=== PATIENT | female | born 1935 | race Caucasian/White ===

== ENCOUNTER 2017-12-07 15:41 | Emergency (ER) | payer MEDICARE, OTHER ==
[~2017-12-07] VITALS: Ht 162.6 cm; Wt 114.0 kg
[~2017-12-07 15:41] MED LIST: ALBU8HFA PO; CYCL-1 PO; DICL100G15 TOP; LIDO700A32 TP
[2017-12-07 15:47] VITALS: BP 154/62
[2017-12-07 16:50] LABS: BASOPHILS # (AUTO) 0.1 X10'3 (0-0.2); EOSINOPHILS # (AUTO) 0.6 X10'3 (0-0.9); EOSINOPHILS % (AUTO) 6.6 % (0-6); HEMATOCRIT 41.3 % (35.0-45.0); HEMOGLOBIN 13.5 g/dl (12.0-16.0); LYMPHOCYTES % (AUTO) 23.9 % (21-51); MEAN CORPUSCULAR HEMOGLOBIN 29.7 PG (27.0-31.0); MEAN CORPUSCULAR HGB CONC 32.7 % (33.0-36.5); MEAN CORPUSCULAR VOLUME 90.8 FL (78-98); MEAN PLATELET VOLUME 9.7 FL (7.4-10.4); MONOCYTES # (AUTO) 0.7 X10'3 (0-0.9); MONOCYTES % (AUTO) 8.8 % (2-12); NEUTROPHILS % (AUTO) 59.7 % (42-75); PLATELET COUNT 201 X10'3 (140-440); RED BLOOD COUNT 4.55 X10'6 (4.20-5.60); RED CELL DISTRIBUTION WIDTH 13.7 % (11.5-14.5); WHITE BLOOD COUNT 8.4 X10'3 (4.5-11.0)
[2017-12-07 17:08] LABS: PARTIAL THROMBOPLASTIN TIME 24 SECONDS (22-32); PROTHROMBIN TIME 10.1 SECONDS (9.0-12.0)
[2017-12-07 17:13] LABS: ALANINE AMINOTRANSFERASE 30 U/L (12-78); ALBUMIN/GLOBULIN RATIO 0.8 (1.1-1.5); ALKALINE PHOSPHATASE 68 IU/L (46-116); ANION GAP 6 (8-16); ASPARTATE AMINO TRANSFERASE 18 U/L (10-37); BILIRUBIN,TOTAL 0.4 MG/DL (0.1-1.0); BLOOD UREA NITROGEN 11 MG/DL (7-18); BUN/CREATININE RATIO 14.5 (6.6-38.0); CALCIUM 8.8 MG/DL (8.5-10.1); CHLORIDE 105 MMOL/L (99-107); CREATININE 0.76 MG/DL (0.40-0.90); GLUCOSE 104 MG/DL (70-104); POTASSIUM 4.1 MMOL/L (3.5-5.1); SODIUM 141 MMOL/L (135-145); TOTAL CARBON DIOXIDE 30.5 MMOL/L (24-32); TOTAL PROTEIN 6.6 G/DL (6.4-8.2); eGFR 73 ML/MIN
[2017-12-07 18:34] LABS: CLARITY,URINE SLIGHTLY CLOUDY (Clear); COLOR,URINE YELLOW (Yellow); GLUCOSE, URINE NEGATIVE (Neg); KETONES,URINE NEGATIVE (Neg); LEUKOCYTE ESTERASE ,URINE MODERATE (Neg); NITRITES, URINE NEGATIVE (Neg); OCCULT BLOOD,URINE NEGATIVE (Neg); PH,URINE 7.5 (4.8-8.0); PROTEIN,URINE NEGATIVE (Neg); UROBILINOGEN,URINE 0.2 E.U/dL (0.2-1.0)
[2017-12-07 18:35] LABS: UA COLLECTION TYPE VOIDED
[2017-12-07 18:40] LABS: URINE AMPHETAMINE SCREEN NEGATIVE (Neg); URINE BARBITUATE SCREEN NEGATIVE (Neg); URINE BENZODIAZEPINES SCREEN NEGATIVE (Neg); URINE CANNABINOID SCREEN NEGATIVE (Neg); URINE COCAINE SCREEN NEGATIVE (Neg); URINE METHADONE SCREEN NEGATIVE (Neg); URINE OPIATE SCREEN NEGATIVE (Neg); URINE PHENCYCLIDINE SCREEN NEGATIVE (Neg)
[2017-12-07 18:41] LABS: BACTERIA,URINE 4+ /HPF (Neg); RBC,URINE 0-2 /HPF (0-2); SQUAMOUS EPITHELIAL CELL,UR MANY /LPF (FEW)
[2017-12-07 18:42] LABS: RENAL CELLS, URINE FEW /HPF; TRANSITIONAL EPI CELLS,URINE FEW /HPF; WBC CLUMPS,URINE FEW /HPF (NEGATIVE)
[2017-12-07] MEDS ORDERED: NITR100C6 PO (18:48)
== END 2017-12-07 19:05 | disposition home or self-care (01) ==
LOC: ER 15:41
DX: N39.0 Urinary tract infection, site not specified (principal); R53.1 Weakness; K21.9 Gastro-esophageal reflux disease without esophagitis; G89.29 Other chronic pain; Z88.0 Allergy status to penicillin; Z88.2 Allergy status to sulfonamides; Z88.6 Allergy status to analgesic agent; Z88.1 Allergy status to other antibiotic agents; Z88.8 Allergy status to other drugs, medicaments and biological substances; Z79.899 Other long term (current) drug therapy
CPT/HCPCS: 36415; 70450; 71045; 80053; 80305; 81001; 84484; 85025; 85610; 85730; 93005; 99285

== ENCOUNTER 2018-01-04 19:47 | Emergency (ER) | payer MEDICARE, OTHER ==
[~2018-01-04] VITALS: Ht 162.6 cm; Wt 113.4 kg
[~2018-01-04 19:47] MED LIST changes: +NITR100C6 PO
[2018-01-04 19:50] VITALS: BP 179/74
== END 2018-01-04 23:31 | disposition home or self-care (01) ==
LOC: ER 19:48
DX: S01.81XA Laceration without foreign body of other part of head, initial encounter (principal); S09.90XA Unspecified injury of head, initial encounter; K21.9 Gastro-esophageal reflux disease without esophagitis; G89.29 Other chronic pain; F41.9 Anxiety disorder, unspecified; Z87.11 Personal history of peptic ulcer disease; Z90.49 Acquired absence of other specified parts of digestive tract; Z88.0 Allergy status to penicillin; Z88.1 Allergy status to other antibiotic agents; Z88.6 Allergy status to analgesic agent; Z88.5 Allergy status to narcotic agent; Z88.2 Allergy status to sulfonamides; W01.0XXA Fall on same level from slipping, tripping and stumbling without subsequent striking against object, initial encounter; Y93.01 Activity, walking, marching and hiking; Y92.512 Supermarket, store or market as the place of occurrence of the external cause; Y99.8 Other external cause status
CPT/HCPCS: 12011; 70450; 99284

== ENCOUNTER 2018-01-19 15:13 | Emergency (ER) | payer MEDICARE, OTHER ==
[~2018-01-19] VITALS: Ht 162.6 cm; Wt 92.3 kg
[2018-01-19 16:05] LABS: BASOPHILS # (AUTO) 0.1 X10'3 (0-0.2); BASOPHILS % (AUTO) 0.7 % (0-1); EOSINOPHILS # (AUTO) 0.8 X10'3 (0-0.9); EOSINOPHILS % (AUTO) 10.5 % (0-6); HEMATOCRIT 39.7 % (35.0-45.0); HEMOGLOBIN 13.1 g/dl (12.0-16.0); LYMPHOCYTES # (AUTO) 2.3 X10'3 (1.1-4.8); LYMPHOCYTES % (AUTO) 29.5 % (21-51); MEAN CORPUSCULAR HEMOGLOBIN 29.8 PG (27.0-31.0); MEAN CORPUSCULAR HGB CONC 32.9 % (33.0-36.5); MEAN CORPUSCULAR VOLUME 90.4 FL (78-98); MEAN PLATELET VOLUME 8.9 FL (7.4-10.4); MONOCYTES # (AUTO) 0.6 X10'3 (0-0.9); MONOCYTES % (AUTO) 7.5 % (2-12); NEUTROPHILS % (AUTO) 51.8 % (42-75); PLATELET COUNT 224 X10'3 (140-440); RED BLOOD COUNT 4.39 X10'6 (4.20-5.60); RED CELL DISTRIBUTION WIDTH 14.7 % (11.5-14.5); WHITE BLOOD COUNT 7.8 X10'3 (4.5-11.0)
[2018-01-19 16:18] LABS: ALANINE AMINOTRANSFERASE 34 U/L (12-78); ALBUMIN 3.1 G/DL (3.4-5.0); ALBUMIN/GLOBULIN RATIO 0.8 (1.1-1.5); ALKALINE PHOSPHATASE 68 IU/L (46-116); ANION GAP 7 (8-16); ASPARTATE AMINO TRANSFERASE 21 U/L (10-37); BILIRUBIN,TOTAL 0.3 MG/DL (0.1-1.0); BLOOD UREA NITROGEN 8 MG/DL (7-18); BUN/CREATININE RATIO 10.7 (6.6-38.0); CALCIUM 8.6 MG/DL (8.5-10.1); CHLORIDE 104 MMOL/L (99-107); CREATININE 0.75 MG/DL (0.40-0.90); GLUCOSE 101 MG/DL (70-104); POTASSIUM 4.1 MMOL/L (3.5-5.1); SODIUM 142 MMOL/L (135-145); TOTAL CARBON DIOXIDE 30.7 MMOL/L (24-32); TOTAL PROTEIN 6.8 G/DL (6.4-8.2); eGFR 74 ML/MIN
[2018-01-19 16:51] LABS: CLARITY,URINE CLEAR (Clear); COLOR,URINE YELLOW (Yellow); GLUCOSE, URINE NEGATIVE (Neg); KETONES,URINE NEGATIVE (Neg); LEUKOCYTE ESTERASE ,URINE TRACE (Neg); NITRITES, URINE NEGATIVE (Neg); OCCULT BLOOD,URINE NEGATIVE (Neg); PROTEIN,URINE NEGATIVE (Neg); UROBILINOGEN,URINE 0.2 E.U/dL (0.2-1.0)
[2018-01-19 16:56] VITALS: BP 157/82
[2018-01-19 16:58] LABS: UA COLLECTION TYPE VOIDED
[2018-01-19 16:59] LABS: BACTERIA,URINE NONE SEEN /HPF (Neg); MUCUS STRANDS NONE SEEN /LPF (Neg); RBC,URINE 0-2 /HPF (0-2); SQUAMOUS EPITHELIAL CELL,UR FEW /LPF (FEW); WBC,URINE 0-4 /HPF (0-4)
[2018-01-19] MEDS ORDERED: NITR-79 PO (17:19)
== END 2018-01-19 19:27 | disposition home or self-care (01) ==
LOC: ER 15:13
DX: N39.0 Urinary tract infection, site not specified (principal); K21.9 Gastro-esophageal reflux disease without esophagitis; G89.29 Other chronic pain; I51.7 Cardiomegaly; Z90.49 Acquired absence of other specified parts of digestive tract; Z98.890 Other specified postprocedural states; Z88.0 Allergy status to penicillin; Z88.2 Allergy status to sulfonamides; Z88.1 Allergy status to other antibiotic agents; Z88.8 Allergy status to other drugs, medicaments and biological substances; Z79.899 Other long term (current) drug therapy
CPT/HCPCS: 36415; 71045; 80053; 81001; 84484; 85025; 87088; 93005; 99285

== ENCOUNTER 2018-01-24 22:21 | Emergency (ER) | payer MEDICARE, OTHER ==
[~2018-01-24] VITALS: Ht 162.6 cm; Wt 92.3 kg
[~2018-01-24 22:21] MED LIST changes: +NITR-79 PO
[2018-01-24] MEDS ORDERED: acetaminophen 325mg tablet PO ONE (22:40)
[2018-01-25] MEDS ORDERED: acetaminophen 325mg tablet PO ONE (05:55)
[2018-01-25] MEDS ORDERED: traMADol 50MG tablet PO ONE ×2 (07:25→14:00)
[2018-01-25] MEDS ORDERED: morphine 2 MG/ML inj. syringe IM ONE (13:10)
[2018-01-25] MEDS ORDERED: clonazePAM 0.5mg tablet PO SCH (14:00)
[2018-01-25 16:36] VITALS: BP 177/106
== END 2018-01-25 17:40 | disposition home or self-care (01) ==
LOC: ER 22:21
DX: M25.561 Pain in right knee (principal); M25.562 Pain in left knee; R29.6 Repeated falls; K21.9 Gastro-esophageal reflux disease without esophagitis; G89.29 Other chronic pain; Z90.49 Acquired absence of other specified parts of digestive tract; Z98.890 Other specified postprocedural states; Z88.8 Allergy status to other drugs, medicaments and biological substances; Z88.0 Allergy status to penicillin; Z88.2 Allergy status to sulfonamides; Z88.5 Allergy status to narcotic agent; Z88.1 Allergy status to other antibiotic agents; W19.XXXA Unspecified fall, initial encounter; Y93.89 Activity, other specified; Y92.89 Other specified places as the place of occurrence of the external cause; Y99.9 Unspecified external cause status
CPT/HCPCS: 73560; 97161; 97530; 99284

== ENCOUNTER 2019-08-16 19:03 | Inpatient (IN) | payer MEDICARE, OTHER ==
[~2019-08-16] VITALS: Ht 162.6 cm; Wt 226.6 kg
[~2019-08-16 19:03] MED LIST changes: -ALBU8HFA PO; +CLON-527 PO; -CYCL-1 PO; -DICL100G15 TOP; +ESOM40CA49 PO; -LIDO700A32 TP; +METO25TA6 PO; -NITR-79 PO; -NITR100C6 PO
[2019-08-16 21:41] LABS: BASOPHILS # (AUTO) 0.1 X10'3 (0-0.2); BASOPHILS % (AUTO) 0.7 % (0-1); EOSINOPHILS # (AUTO) 0.5 X10'3 (0-0.9); EOSINOPHILS % (AUTO) 5.8 % (0-6); HEMATOCRIT 37.1 % (35.0-45.0); HEMOGLOBIN 11.8 g/dl (12.0-16.0); LYMPHOCYTES # (AUTO) 1.6 X10'3 (1.1-4.8); LYMPHOCYTES % (AUTO) 17.5 % (21-51); MEAN CORPUSCULAR HGB CONC 31.8 g/dL (33.0-36.5); MEAN CORPUSCULAR VOLUME 87.9 FL (78-98); MONOCYTES % (AUTO) 10.7 % (2-12); NEUTROPHILS % (AUTO) 65.3 % (42-75); PLATELET COUNT 232 X10'3 (140-440); RED BLOOD COUNT 4.23 X10'6 (4.20-5.60); RED CELL DISTRIBUTION WIDTH 16.1 % (11.5-14.5); WHITE BLOOD COUNT 9.2 X10'3 (4.5-11.0)
--- NOTE | 2019-08-16 21:47 | NUR ---
Dr. Miguel made aware Pt noted to be in Afib rate high 130's to low 140's. MD to assess Pt.
[2019-08-16 21:57] LABS: ALANINE AMINOTRANSFERASE 23 U/L (12-78); ALBUMIN 2.8 G/DL (3.4-5.0); ALBUMIN/GLOBULIN RATIO 0.7 (1.1-1.5); ALKALINE PHOSPHATASE 94 IU/L (46-116); ANION GAP 4 (8-16); ASPARTATE AMINO TRANSFERASE 22 U/L (10-37); BILIRUBIN,TOTAL 0.4 MG/DL (0.1-1.0); BLOOD UREA NITROGEN 12 MG/DL (7-18); BUN/CREATININE RATIO 15.2 (6.6-38.0); CALCIUM 9.2 MG/DL (8.5-10.1); CHLORIDE 107 MMOL/L (99-107); CREATININE 0.79 MG/DL (0.40-0.90); GLUCOSE 99 MG/DL (70-104); POTASSIUM 3.9 MMOL/L (3.5-5.1); SODIUM 142 MMOL/L (135-145); TOTAL CARBON DIOXIDE 31.5 MMOL/L (24-32); TOTAL PROTEIN 6.9 G/DL (6.4-8.2); eGFR 70 ML/MIN
[2019-08-16] MEDS ORDERED: metoprolol tartrate 50mg tablet PO ONE (22:55)
[2019-08-16] MEDS ORDERED: CLON-527 PO (23:24)
[2019-08-16] MEDS ORDERED: METO-467 PO (23:42)
[2019-08-16] MEDS ORDERED: PANT-47 PO (23:42)
[2019-08-16] MEDS ORDERED: ATOR20TA PO (23:42)
[2019-08-16] MEDS ORDERED: ASPI-1265 PO (23:42)
[2019-08-16] MEDS ORDERED: DOCU100C40 PO (23:42)
[2019-08-16] MEDS ORDERED: DILT-88 PO (23:42)
[2019-08-16] MEDS ORDERED: APIX5TAB3 PO (23:42)
--- NOTE | 2019-08-17 00:16 | NUR ---
REC'D CALL FROM MD CARSON. HE STATES THE MEDICAL RECORDS WE REC'D FROM [facility] DID NOT CONTAIN THE H&P AND THAT THERE WAS NO MENTION IN THE RECORDS OF ANY SURGICAL PROCEDURES AND THAT PT HAS A SOMEWHAT RECENT SCAR ON HER ABD. I CONTACTED [place] [facility] @ [phone] WHO STATED THAT HE SENT THE H&P THAT WAS WRITTEN BY AN MD SOL AND HE WILL LOOK TO SEE IF HE CAN FIND ANY SURGICAL REPORTS AND FAX THEM TO US.
[2019-08-17] MEDS ORDERED: mag hydrox/Alum hydrox/simeth 30ml oral suspension PO PRN (00:20)
[2019-08-17] MEDS ORDERED: acetaminophen 325mg tablet PO PRN (00:20)
[2019-08-17] MEDS ORDERED: ondansetron/PF 4mg/2ml inj IV PRN (00:20)
[2019-08-17 00:31] LABS: CLARITY,URINE CLEAR (Clear); COLOR,URINE YELLOW (Yellow); GLUCOSE, URINE NEGATIVE (Neg); KETONES,URINE NEGATIVE (Neg); LEUKOCYTE ESTERASE ,URINE NEGATIVE (Neg); NITRITES, URINE NEGATIVE (Neg); OCCULT BLOOD,URINE NEGATIVE (Neg); PROTEIN,URINE NEGATIVE (Neg); UROBILINOGEN,URINE 0.2 E.U/dL (0.2-1.0)
[2019-08-17 00:32] LABS: UA COLLECTION TYPE STRAIGHT CATH
[2019-08-17] MEDS ORDERED: metoprolol tartrate 50mg tablet PO ONE (00:40)
--- NOTE | 2019-08-17 00:42 | NUR ---
Dr. Angulo in the ED at this time and made aware of pt RVR of 130-140s. Order received to give metoprolol 25mg 1 tab po once.
[2019-08-17] MEDS ORDERED: metoprolol tartrate 25mg tablet PO ONE (00:45)
--- NOTE | 2019-08-17 01:17 | NUR ---
Report given to me by Kenny and I will relay the report to Vielka GRIFFIN.
--- NOTE | 2019-08-17 01:35 | NUR ---
RECEIVED PATIENT FROM ER. PATIENT IN BED RESTING AND IN NO APPARENT DISTRESS.
[2019-08-17 01:36] VITALS: BP 142/94
--- NOTE | 2019-08-17 02:00 | NUR ---
Pictures of buttocks, bilat groin taken and placed in chart. Addendum: 08/17/19 at 0407 by Ramon Peng RN Amended: Links added.
--- NOTE | 2019-08-17 06:05 | NUR ---
Patient in room [facility] 349. I have received report from DEVENDRA GRIFFIN and had the opportunity to ask questions and assume patient care.
--- NOTE | 2019-08-17 06:17 | NUR ---
Problems reprioritized. Patient report given, questions answered & plan of care reviewed with Radha GRIFFIN.
[2019-08-17 08:00] VITALS: BP 143/98
[2019-08-17] MEDS ORDERED: aspirin 81mg tab.chew PO SCH (08:00)
[2019-08-17] MEDS: apixaban 5mg tablet PO SCH ×2 (08:22→21:49)
[2019-08-17] MEDS: diltiazem CD 120mg capsule (once-daily) PO SCH (08:22)
[2019-08-17] MEDS: docusate sod 100mg capsule PO SCH ×2 (08:22→21:49)
[2019-08-17] MEDS: pantoprazole 40mg Tablet.DR PO SCH (08:23)
[2019-08-17] MEDS: metoprolol tartrate 50mg tablet PO SCH ×2 (08:23→21:52)
[2019-08-17] MEDS ORDERED: magnesium Cl slow-release 64mg tablet PO PRN (10:15)
[2019-08-17] MEDS: K and/or MAG REPLACEMENT MC SCH ×2 (10:15→19:18)
[2019-08-17] MEDS ORDERED: potassium Cl 20 mEq SR tablet PO PRN ×2 (10:15)
[2019-08-17] MEDS ORDERED: potassium CL 10mEq/100ml bag 100 ML IV PRN (10:15)
[2019-08-17] MEDS ORDERED: magnesium 4gm in 100ml NS 100 ML IV PRN (10:15)
--- NOTE | 2019-08-17 10:18 | NUR ---
PAGER ID: [phone] MESSAGE: [id number] RE: TREE [id number] STATES SHE TAKES NORCO AT HOME, NOTHING ORDERED, C/O PAIN NOW,
[2019-08-17] MEDS: HYDROcodone/acetaminophen 5mg/325mg tablet PO PRN (10:47)
[2019-08-17 11:00] VITALS: BP 126/74
[2019-08-17] MEDS: HYDROcodone/acetaminophen 10/325mg tab PO PRN ×2 (16:36→22:24)
[2019-08-17 18:15] VITALS: BP 120/77
--- NOTE | 2019-08-17 18:15 | NUR ---
Problems reprioritized. Patient report given, questions answered & plan of care reviewed with LIDYA GRIFFIN.
--- NOTE | 2019-08-17 18:49 | NUR ---
Patient in room [facility] 349. I have received report from ELIAS Garcia and had the opportunity to ask questions and assume patient care.
[2019-08-17] MEDS: atorvastatin 20mg tablet PO SCH (21:46)
[2019-08-17] MEDS: clonazePAM 1mg tablet PO PRN (21:49)
[2019-08-18 00:15] VITALS: BP 112/61
[2019-08-18] MEDS: magnesium hydroxide 30ml (MOM) UD suspension PO PRN ×2 (04:20→20:54)
[2019-08-18 05:16] LABS: ALANINE AMINOTRANSFERASE 21 U/L (12-78); ALBUMIN 2.3 G/DL (3.4-5.0); ALBUMIN/GLOBULIN RATIO 0.6 (1.1-1.5); ALKALINE PHOSPHATASE 80 IU/L (46-116); ANION GAP 5 (8-16); ASPARTATE AMINO TRANSFERASE 21 U/L (10-37); BILIRUBIN,TOTAL 0.2 MG/DL (0.1-1.0); BLOOD UREA NITROGEN 12 MG/DL (7-18); BUN/CREATININE RATIO 15.4 (6.6-38.0); CALCIUM 8.5 MG/DL (8.5-10.1); CHLORIDE 107 MMOL/L (99-107); CREATININE 0.78 MG/DL (0.40-0.90); GLUCOSE 101 MG/DL (70-104); MAGNESIUM 1.8 MG/DL (1.5-2.4); PHOSPHORUS 4.1 MG/DL (2.3-4.5); POTASSIUM 3.8 MMOL/L (3.5-5.1); SODIUM 141 MMOL/L (135-145); TOTAL PROTEIN 5.9 G/DL (6.4-8.2); eGFR 71 ML/MIN
[2019-08-18 05:18] LABS: BASOPHILS # (AUTO) 0.1 X10'3 (0-0.2); BASOPHILS % (AUTO) 0.8 % (0-1); EOSINOPHILS # (AUTO) 0.8 X10'3 (0-0.9); EOSINOPHILS % (AUTO) 10.1 % (0-6); LYMPHOCYTES # (AUTO) 2.1 X10'3 (1.1-4.8); LYMPHOCYTES % (AUTO) 27.4 % (21-51); MEAN CORPUSCULAR HEMOGLOBIN 28.5 PG (27.0-31.0); MEAN CORPUSCULAR HGB CONC 32.3 g/dL (33.0-36.5); MEAN PLATELET VOLUME 9.1 FL (7.4-10.4); MONOCYTES # (AUTO) 0.8 X10'3 (0-0.9); MONOCYTES % (AUTO) 10.3 % (2-12); NEUTROPHILS # (AUTO) 3.9 X10'3 (1.8-7.7); NEUTROPHILS % (AUTO) 51.4 % (42-75); PLATELET COUNT 198 X10'3 (140-440); RED BLOOD COUNT 3.86 X10'6 (4.20-5.60); RED CELL DISTRIBUTION WIDTH 16.1 % (11.5-14.5); WHITE BLOOD COUNT 7.7 X10'3 (4.5-11.0)
--- NOTE | 2019-08-18 06:27 | NUR ---
Patient in room [facility] 349. I have received report from Lu GRIFFIN and had the opportunity to ask questions and assume patient care.
--- NOTE | 2019-08-18 06:27 | NUR ---
Problems reprioritized. Patient report given, questions answered & plan of care reviewed with ELIAS Sharma.
[2019-08-18 07:31] VITALS: BP 111/62
[2019-08-18] MEDS: docusate sod 100mg capsule PO SCH ×2 (07:40→20:53)
[2019-08-18] MEDS: apixaban 5mg tablet PO SCH ×2 (07:40→20:53)
[2019-08-18] MEDS: metoprolol tartrate 50mg tablet PO SCH ×2 (07:40→20:53)
[2019-08-18] MEDS: pantoprazole 40mg Tablet.DR PO SCH (07:41)
[2019-08-18] MEDS: diltiazem CD 120mg capsule (once-daily) PO SCH (07:41)
[2019-08-18] MEDS: K and/or MAG REPLACEMENT MC SCH ×2 (08:00→20:00)
[2019-08-18] MEDS: HYDROcodone/acetaminophen 10/325mg tab PO PRN ×2 (09:08→20:52)
[2019-08-18 11:41] VITALS: BP 116/68
--- NOTE | 2019-08-18 18:05 | NUR ---
Patient in room [facility] 349. I have received report from Zachary GRIFFIN and had the opportunity to ask questions and assume patient care.
--- NOTE | 2019-08-18 18:22 | NUR ---
Problems reprioritized. Patient report given, questions answered & plan of care reviewed with Amelia GRIFFIN.
[2019-08-18 20:00] VITALS: BP 133/70
[2019-08-18] MEDS: NYSTATIN CREAM - 30GM TUBE TP SCH (20:45)
[2019-08-18] MEDS: atorvastatin 20mg tablet PO SCH (20:52)
[2019-08-18] MEDS: clonazePAM 1mg tablet PO PRN (21:17)
[2019-08-19] VITALS: BP 126/86
[2019-08-19 05:38] LABS: BASOPHILS # (AUTO) 0.1 X10'3 (0-0.2); BASOPHILS % (AUTO) 0.8 % (0-1); EOSINOPHILS # (AUTO) 0.6 X10'3 (0-0.9); EOSINOPHILS % (AUTO) 7.4 % (0-6); HEMATOCRIT 35.2 % (35.0-45.0); HEMOGLOBIN 11.2 g/dl (12.0-16.0); LYMPHOCYTES # (AUTO) 1.8 X10'3 (1.1-4.8); LYMPHOCYTES % (AUTO) 20.6 % (21-51); MEAN CORPUSCULAR HGB CONC 31.8 g/dL (33.0-36.5); MEAN CORPUSCULAR VOLUME 87.9 FL (78-98); MEAN PLATELET VOLUME 9.1 FL (7.4-10.4); MONOCYTES # (AUTO) 0.8 X10'3 (0-0.9); MONOCYTES % (AUTO) 8.8 % (2-12); NEUTROPHILS # (AUTO) 5.4 X10'3 (1.8-7.7); NEUTROPHILS % (AUTO) 62.4 % (42-75); PLATELET COUNT 220 X10'3 (140-440); RED BLOOD COUNT 4.01 X10'6 (4.20-5.60); RED CELL DISTRIBUTION WIDTH 16.2 % (11.5-14.5); WHITE BLOOD COUNT 8.7 X10'3 (4.5-11.0)
[2019-08-19 06:00] LABS: ALANINE AMINOTRANSFERASE 23 U/L (12-78); ALBUMIN 2.4 G/DL (3.4-5.0); ALBUMIN/GLOBULIN RATIO 0.6 (1.1-1.5); ALKALINE PHOSPHATASE 87 IU/L (46-116); ANION GAP 4 (8-16); ASPARTATE AMINO TRANSFERASE 37 U/L (10-37); BILIRUBIN,TOTAL 0.4 MG/DL (0.1-1.0); BLOOD UREA NITROGEN 11 MG/DL (7-18); BUN/CREATININE RATIO 16.2 (6.6-38.0); CALCIUM 8.4 MG/DL (8.5-10.1); CHLORIDE 106 MMOL/L (99-107); CREATININE 0.68 MG/DL (0.40-0.90); GLUCOSE 92 MG/DL (70-104); MAGNESIUM 2.1 MG/DL (1.5-2.4); PHOSPHORUS 3.8 MG/DL (2.3-4.5); POTASSIUM 4.3 MMOL/L (3.5-5.1); SODIUM 141 MMOL/L (135-145); TOTAL CARBON DIOXIDE 31.4 MMOL/L (24-32); TOTAL PROTEIN 6.2 G/DL (6.4-8.2); eGFR 83 ML/MIN
--- NOTE | 2019-08-19 06:40 | NUR ---
Problems reprioritized. Patient report given, questions answered & plan of care reviewed with Zachary RN.
--- NOTE | 2019-08-19 07:00 | NUR ---
Patient in room [facility] 349. I have received report from Amelia GRIFFIN and had the opportunity to ask questions and assume patient care.
[2019-08-19 08:00] VITALS: BP 131/88
[2019-08-19] MEDS: K and/or MAG REPLACEMENT MC SCH ×2 (08:00→20:00)
[2019-08-19] MEDS: diltiazem CD 120mg capsule (once-daily) PO SCH (08:11)
[2019-08-19] MEDS: metoprolol tartrate 50mg tablet PO SCH ×2 (08:11→20:05)
[2019-08-19] MEDS: pantoprazole 40mg Tablet.DR PO SCH (08:12)
[2019-08-19] MEDS: docusate sod 100mg capsule PO SCH ×2 (08:12→20:04)
[2019-08-19] MEDS: apixaban 5mg tablet PO SCH ×2 (08:12→20:05)
[2019-08-19] MEDS: NYSTATIN CREAM - 30GM TUBE TP SCH ×2 (08:12→20:05)
[2019-08-19 11:00] VITALS: BP 135/84
--- NOTE | 2019-08-19 12:55 | NUR ---
Zachary Surg [id number] Re: 349B Anika Martinez Patient is complaining that she has a clot in the lower right extremity. I don't see any signs or symptoms other than patient complaint. Wanted to let you know thanks Zachary. This message sent to physician after complaint from patient. Physician stated keep a close eye on the patient and the RLE until he makes his rounds.
--- NOTE | 2019-08-19 18:20 | NUR ---
Patient in room [facility] 349. I have received report from Zachary GRIFFIN and had the opportunity to ask questions and assume patient care.
--- NOTE | 2019-08-19 18:23 | NUR ---
Problems reprioritized. Patient report given, questions answered & plan of care reviewed with Monica GRIFFIN.
[2019-08-19 19:57] VITALS: BP 128/78
[2019-08-19] MEDS: atorvastatin 20mg tablet PO SCH (20:05)
[2019-08-19] MEDS: HYDROcodone/acetaminophen 5mg/325mg tablet PO PRN (22:06)
[2019-08-19] MEDS: clonazePAM 1mg tablet PO PRN (22:09)
[2019-08-20] VITALS: BP 140/76
[2019-08-20 05:09] LABS: BASOPHILS # (AUTO) 0.1 X10'3 (0-0.2); BASOPHILS % (AUTO) 0.9 % (0-1); EOSINOPHILS # (AUTO) 0.5 X10'3 (0-0.9); EOSINOPHILS % (AUTO) 5.5 % (0-6); HEMATOCRIT 35.3 % (35.0-45.0); HEMOGLOBIN 11.2 g/dl (12.0-16.0); LYMPHOCYTES % (AUTO) 21.8 % (21-51); MEAN CORPUSCULAR HGB CONC 31.7 g/dL (33.0-36.5); MEAN CORPUSCULAR VOLUME 88.1 FL (78-98); MEAN PLATELET VOLUME 9.3 FL (7.4-10.4); MONOCYTES # (AUTO) 0.9 X10'3 (0-0.9); MONOCYTES % (AUTO) 9.7 % (2-12); NEUTROPHILS # (AUTO) 5.7 X10'3 (1.8-7.7); NEUTROPHILS % (AUTO) 62.1 % (42-75); PLATELET COUNT 184 X10'3 (140-440); RED CELL DISTRIBUTION WIDTH 16.2 % (11.5-14.5); WHITE BLOOD COUNT 9.2 X10'3 (4.5-11.0)
[2019-08-20 05:17] LABS: ALANINE AMINOTRANSFERASE 19 U/L (12-78); ALBUMIN 2.4 G/DL (3.4-5.0); ALBUMIN/GLOBULIN RATIO 0.6 (1.1-1.5); ALKALINE PHOSPHATASE 89 IU/L (46-116); ANION GAP 3 (8-16); ASPARTATE AMINO TRANSFERASE 17 U/L (10-37); BILIRUBIN,TOTAL 0.3 MG/DL (0.1-1.0); BLOOD UREA NITROGEN 11 MG/DL (7-18); BUN/CREATININE RATIO 13.1 (6.6-38.0); CALCIUM 8.6 MG/DL (8.5-10.1); CHLORIDE 109 MMOL/L (99-107); CREATININE 0.84 MG/DL (0.40-0.90); GLUCOSE 100 MG/DL (70-104); PHOSPHORUS 3.9 MG/DL (2.3-4.5); POTASSIUM 4.1 MMOL/L (3.5-5.1); SODIUM 142 MMOL/L (135-145); TOTAL CARBON DIOXIDE 29.6 MMOL/L (24-32); TOTAL PROTEIN 6.2 G/DL (6.4-8.2); eGFR 65 ML/MIN
--- NOTE | 2019-08-20 06:38 | NUR ---
Problems reprioritized. Patient report given, questions answered & plan of care reviewed with Mechelle GRIFFIN.
--- NOTE | 2019-08-20 06:59 | NUR ---
Patient in room [facility] 349. I have received report from ELIAS Anderson and had the opportunity to ask questions and assume patient care.
[2019-08-20] MEDS: pantoprazole 40mg Tablet.DR PO SCH (07:53)
[2019-08-20] MEDS: apixaban 5mg tablet PO SCH ×2 (07:53→20:15)
[2019-08-20] MEDS: docusate sod 100mg capsule PO SCH ×2 (07:53→20:15)
[2019-08-20] MEDS: diltiazem CD 120mg capsule (once-daily) PO SCH (07:53)
[2019-08-20] MEDS: metoprolol tartrate 50mg tablet PO SCH ×2 (07:56→20:15)
[2019-08-20 08:00] VITALS: BP 143/80
[2019-08-20] MEDS: K and/or MAG REPLACEMENT MC SCH ×2 (08:00→20:00)
[2019-08-20] MEDS: NYSTATIN CREAM - 30GM TUBE TP SCH ×2 (08:00→20:15)
[2019-08-20 12:00] VITALS: BP 129/78
--- NOTE | 2019-08-20 18:36 | NUR ---
Problems reprioritized. Patient report given, questions answered & plan of care reviewed with ELIAS Anderson.
--- NOTE | 2019-08-20 18:36 | NUR ---
Patient in room [facility] 349. I have received report from Mechelle GRIFFIN and had the opportunity to ask questions and assume patient care.
[2019-08-20 20:00] VITALS: BP 147/78
[2019-08-20] MEDS: atorvastatin 20mg tablet PO SCH (20:15)
[2019-08-20] MEDS: HYDROcodone/acetaminophen 10/325mg tab PO PRN (20:15)
[2019-08-20] MEDS: clonazePAM 1mg tablet PO PRN (21:03)
[2019-08-21] VITALS: BP 122/74
--- NOTE | 2019-08-21 06:26 | NUR ---
Problems reprioritized. Patient report given, questions answered & plan of care reviewed with Pat GRIFFIN.
[2019-08-21 07:00] VITALS: BP 151/79
[2019-08-21 07:58] LABS: ALANINE AMINOTRANSFERASE 15 U/L (12-78); ALBUMIN 2.4 G/DL (3.4-5.0); ALBUMIN/GLOBULIN RATIO 0.6 (1.1-1.5); ALKALINE PHOSPHATASE 93 IU/L (46-116); ANION GAP 7 (8-16); ASPARTATE AMINO TRANSFERASE 14 U/L (10-37); BILIRUBIN,TOTAL 0.4 MG/DL (0.1-1.0); BLOOD UREA NITROGEN 10 MG/DL (7-18); BUN/CREATININE RATIO 13.5 (6.6-38.0); CALCIUM 8.6 MG/DL (8.5-10.1); CHLORIDE 107 MMOL/L (99-107); CREATININE 0.74 MG/DL (0.40-0.90); GLUCOSE 92 MG/DL (70-104); MAGNESIUM 1.9 MG/DL (1.5-2.4); PHOSPHORUS 3.8 MG/DL (2.3-4.5); POTASSIUM 4.1 MMOL/L (3.5-5.1); SODIUM 142 MMOL/L (135-145); TOTAL CARBON DIOXIDE 28.4 MMOL/L (24-32); TOTAL PROTEIN 6.2 G/DL (6.4-8.2); eGFR 75 ML/MIN
[2019-08-21] MEDS: K and/or MAG REPLACEMENT MC SCH ×2 (08:00→20:00)
[2019-08-21 08:01] LABS: BASOPHILS % (AUTO) 0.4 % (0-1); EOSINOPHILS # (AUTO) 0.6 X10'3 (0-0.9); EOSINOPHILS % (AUTO) 5.7 % (0-6); HEMATOCRIT 37.2 % (35.0-45.0); HEMOGLOBIN 11.8 g/dl (12.0-16.0); LYMPHOCYTES % (AUTO) 19.9 % (21-51); MEAN CORPUSCULAR HEMOGLOBIN 27.7 PG (27.0-31.0); MEAN CORPUSCULAR HGB CONC 31.6 g/dL (33.0-36.5); MEAN CORPUSCULAR VOLUME 87.6 FL (78-98); MEAN PLATELET VOLUME 9.2 FL (7.4-10.4); MONOCYTES # (AUTO) 0.9 X10'3 (0-0.9); MONOCYTES % (AUTO) 8.9 % (2-12); NEUTROPHILS # (AUTO) 6.6 X10'3 (1.8-7.7); NEUTROPHILS % (AUTO) 65.1 % (42-75); PLATELET COUNT 195 X10'3 (140-440); RED BLOOD COUNT 4.25 X10'6 (4.20-5.60); RED CELL DISTRIBUTION WIDTH 15.9 % (11.5-14.5); WHITE BLOOD COUNT 10.2 X10'3 (4.5-11.0)
[2019-08-21] MEDS: diltiazem CD 120mg capsule (once-daily) PO SCH (08:44)
[2019-08-21] MEDS: HYDROcodone/acetaminophen 10/325mg tab PO PRN (08:45)
[2019-08-21] MEDS: docusate sod 100mg capsule PO SCH ×2 (08:45→20:33)
[2019-08-21] MEDS: apixaban 5mg tablet PO SCH ×2 (08:45→20:33)
[2019-08-21] MEDS: metoprolol tartrate 50mg tablet PO SCH ×2 (08:45→20:38)
[2019-08-21] MEDS: pantoprazole 40mg Tablet.DR PO SCH (08:45)
[2019-08-21] MEDS: NYSTATIN CREAM - 30GM TUBE TP SCH ×2 (08:46→22:48)
[2019-08-21 12:00] VITALS: BP 107/66
--- NOTE | 2019-08-21 18:30 | NUR ---
Patient in room [facility] 358B. I have received report from Pat GRIFFIN and had the opportunity to ask questions and assume patient care.
[2019-08-21 20:00] VITALS: BP 128/72
[2019-08-21] MEDS: atorvastatin 20mg tablet PO SCH (20:33)
[2019-08-22] VITALS: BP 122/59
[2019-08-22 05:54] LABS: BASOPHILS # (AUTO) 0.1 X10'3 (0-0.2); BASOPHILS % (AUTO) 0.8 % (0-1); EOSINOPHILS # (AUTO) 0.6 X10'3 (0-0.9); EOSINOPHILS % (AUTO) 6.5 % (0-6); HEMATOCRIT 36.4 % (35.0-45.0); HEMOGLOBIN 11.7 g/dl (12.0-16.0); LYMPHOCYTES # (AUTO) 1.7 X10'3 (1.1-4.8); LYMPHOCYTES % (AUTO) 18.2 % (21-51); MEAN CORPUSCULAR HGB CONC 32.2 g/dL (33.0-36.5); MEAN PLATELET VOLUME 9.1 FL (7.4-10.4); MONOCYTES # (AUTO) 0.8 X10'3 (0-0.9); MONOCYTES % (AUTO) 8.6 % (2-12); NEUTROPHILS # (AUTO) 6.1 X10'3 (1.8-7.7); NEUTROPHILS % (AUTO) 65.9 % (42-75); PLATELET COUNT 214 X10'3 (140-440); RED BLOOD COUNT 4.18 X10'6 (4.20-5.60); RED CELL DISTRIBUTION WIDTH 16.4 % (11.5-14.5); WHITE BLOOD COUNT 9.3 X10'3 (4.5-11.0)
[2019-08-22 06:10] LABS: ALANINE AMINOTRANSFERASE 17 U/L (12-78); ALBUMIN 2.4 G/DL (3.4-5.0); ALBUMIN/GLOBULIN RATIO 0.6 (1.1-1.5); ALKALINE PHOSPHATASE 88 IU/L (46-116); ANION GAP 9 (8-16); ASPARTATE AMINO TRANSFERASE 16 U/L (10-37); BILIRUBIN,TOTAL 0.4 MG/DL (0.1-1.0); BLOOD UREA NITROGEN 12 MG/DL (7-18); BUN/CREATININE RATIO 16.7 (6.6-38.0); CALCIUM 8.7 MG/DL (8.5-10.1); CHLORIDE 104 MMOL/L (99-107); CREATININE 0.72 MG/DL (0.40-0.90); GLUCOSE 101 MG/DL (70-104); MAGNESIUM 1.7 MG/DL (1.5-2.4); PHOSPHORUS 4.1 MG/DL (2.3-4.5); POTASSIUM 4.1 MMOL/L (3.5-5.1); SODIUM 142 MMOL/L (135-145); TOTAL CARBON DIOXIDE 29.4 MMOL/L (24-32); TOTAL PROTEIN 6.3 G/DL (6.4-8.2); eGFR 78 ML/MIN
--- NOTE | 2019-08-22 06:34 | NUR ---
Problems reprioritized. Patient report given, questions answered & plan of care reviewed with Maria C GRIFFIN.
--- NOTE | 2019-08-22 06:56 | NUR ---
Patient in room [facility] 358. I have received report from Monica GRIFFIN and had the opportunity to ask questions and assume patient care.
[2019-08-22 07:00] VITALS: BP 179/67
--- NOTE | 2019-08-22 07:03 | NUR ---
Patient in room [facility] 358. I have received report from Monica GRIFFIN and had the opportunity to ask questions and assume patient care.
[2019-08-22] MEDS: NYSTATIN CREAM - 30GM TUBE TP SCH ×2 (08:00→20:47)
[2019-08-22] MEDS: K and/or MAG REPLACEMENT MC SCH ×2 (08:10→19:34)
[2019-08-22] MEDS: diltiazem CD 120mg capsule (once-daily) PO SCH (08:21)
[2019-08-22] MEDS: docusate sod 100mg capsule PO SCH ×2 (08:21→20:45)
[2019-08-22] MEDS: apixaban 5mg tablet PO SCH ×2 (08:23→20:45)
[2019-08-22] MEDS: pantoprazole 40mg Tablet.DR PO SCH (08:23)
[2019-08-22] MEDS: metoprolol tartrate 50mg tablet PO SCH ×2 (08:28→20:46)
[2019-08-22 11:00] VITALS: BP 93/72
--- NOTE | 2019-08-22 18:23 | NUR ---
Problems reprioritized. Patient report given, questions answered & plan of care reviewed with Rachael GRIFFIN. Patient stable at transfer.
[2019-08-22 20:00] VITALS: BP 145/73
[2019-08-22] MEDS: atorvastatin 20mg tablet PO SCH (20:45)
[2019-08-22] MEDS: clonazePAM 1mg tablet PO PRN (20:50)
[2019-08-22] MEDS: HYDROcodone/acetaminophen 10/325mg tab PO PRN (20:50)
[2019-08-23] VITALS: BP 122/64
[2019-08-23 07:18] VITALS: BP 118/60
[2019-08-23] MEDS: K and/or MAG REPLACEMENT MC SCH ×2 (08:00→20:00)
[2019-08-23] MEDS: pantoprazole 40mg Tablet.DR PO SCH (08:57)
[2019-08-23] MEDS: docusate sod 100mg capsule PO SCH ×2 (08:57→20:54)
[2019-08-23] MEDS: apixaban 5mg tablet PO SCH ×2 (08:57→20:55)
[2019-08-23] MEDS: diltiazem CD 120mg capsule (once-daily) PO SCH (08:58)
[2019-08-23] MEDS: metoprolol tartrate 50mg tablet PO SCH ×2 (08:58→20:55)
[2019-08-23] MEDS: NYSTATIN CREAM - 30GM TUBE TP SCH ×2 (09:01→20:56)
[2019-08-23] MEDS: HYDROcodone/acetaminophen 10/325mg tab PO PRN ×2 (09:15→20:54)
[2019-08-23 11:00] VITALS: BP 142/67
--- NOTE | 2019-08-23 11:31 | NUR ---
Spoke with Abhinav in the Tele office patient in rate controlled Afib. Dr Corcoran aware received orders to DC Tele.
--- NOTE | 2019-08-23 12:56 | NUR ---
Initial: Pt admit with generalized weakness with recent intra-abdominal surgery at [facility] likely cholecystectomy per MD notes. Pt currently on a regular diet documented with average 75-100% PO intake throughout LOS meeting nutrient needs. [facility] 08/21. No nutrition intervention warranted at this time. Will continue to follow. Recommendations: 1) Continue regular diet 2) Routine bowel care 3) Scaled wts Addendum: 08/23/19 at [address] Amended: Links added.
[2019-08-23 20:00] VITALS: BP 143/103
[2019-08-23] MEDS: clonazePAM 1mg tablet PO PRN (20:54)
[2019-08-23] MEDS: atorvastatin 20mg tablet PO SCH (20:55)
[2019-08-24] VITALS: BP 125/56
--- NOTE | 2019-08-24 06:24 | NUR ---
Problems reprioritized. Patient report given, questions answered & plan of care reviewed with Vesta GRIFFIN.
[2019-08-24] MEDS: K and/or MAG REPLACEMENT MC SCH ×2 (06:46→20:00)
[2019-08-24 07:00] VITALS: BP 112/65
[2019-08-24] MEDS: pantoprazole 40mg Tablet.DR PO SCH (08:12)
[2019-08-24] MEDS: diltiazem CD 120mg capsule (once-daily) PO SCH (08:12)
[2019-08-24] MEDS: apixaban 5mg tablet PO SCH ×2 (08:12→19:50)
[2019-08-24] MEDS: docusate sod 100mg capsule PO SCH ×2 (08:12→19:50)
[2019-08-24] MEDS: metoprolol tartrate 50mg tablet PO SCH ×2 (08:12→19:52)
[2019-08-24] MEDS: NYSTATIN CREAM - 30GM TUBE TP SCH ×2 (08:13→20:00)
[2019-08-24 11:37] VITALS: BP 116/65
[2019-08-24] MEDS: HYDROcodone/acetaminophen 10/325mg tab PO PRN (13:45)
--- NOTE | 2019-08-24 15:51 | NUR ---
PT REFUSING TO BE BATHED. WILL CONT TO ATTEMP.
--- NOTE | 2019-08-24 18:25 | NUR ---
Problems reprioritized. Patient report given, questions answered & plan of care reviewed with JAILENE GRIFFIN.
--- NOTE | 2019-08-24 18:26 | NUR ---
Patient in room [facility] 358. I have received report from Vesta Farah and had the opportunity to ask questions and assume patient care. Addendum: 08/24/19 at 1827 by Maura Holder RN Amended: Links added.
--- NOTE | 2019-08-24 19:14 | NUR ---
a/o ate 95% of dinner and tolerated well sitting up in the chair no s&s of distress at this time.
[2019-08-24 19:20] VITALS: BP 105/61
[2019-08-24] MEDS: atorvastatin 20mg tablet PO SCH (19:50)
[2019-08-24] MEDS: clonazePAM 1mg tablet PO PRN (19:55)
--- NOTE | 2019-08-24 20:10 | NUR ---
pt took hs meds then with 3 people and steady liftto get pt back to bed then put on the bedpAN PER REQUEST.
--- NOTE | 2019-08-24 22:10 | NUR ---
pt resting on her side no s&s of distress.
[2019-08-25 00:13] VITALS: BP 119/61
--- NOTE | 2019-08-25 00:19 | NUR ---
pt resting eyes closed no s&s of distress.
--- NOTE | 2019-08-25 02:20 | NUR ---
resting eyes closed without s&s of distress at this time.
--- NOTE | 2019-08-25 05:30 | NUR ---
resting eyes closed no s&s of distress purewick in place.
--- NOTE | 2019-08-25 06:14 | NUR ---
Problems reprioritized. Patient report given, questions answered & plan of care reviewed with Renae Farah. Addendum: 08/25/19 at 0615 by Maura Holder RN Amended: Links added.
[2019-08-25 07:00] VITALS: BP 151/92
[2019-08-25] MEDS: K and/or MAG REPLACEMENT MC SCH ×2 (08:00→20:00)
[2019-08-25] MEDS: metoprolol tartrate 50mg tablet PO SCH ×2 (08:46→20:21)
[2019-08-25] MEDS: diltiazem CD 120mg capsule (once-daily) PO SCH (08:46)
[2019-08-25] MEDS: apixaban 5mg tablet PO SCH ×2 (08:46→20:22)
[2019-08-25] MEDS: pantoprazole 40mg Tablet.DR PO SCH (08:46)
[2019-08-25] MEDS: HYDROcodone/acetaminophen 5mg/325mg tablet PO PRN ×2 (08:47→16:05)
[2019-08-25] MEDS: docusate sod 100mg capsule PO SCH ×2 (08:47→20:22)
[2019-08-25] MEDS: NYSTATIN CREAM - 30GM TUBE TP SCH ×2 (08:52→20:23)
[2019-08-25 11:00] VITALS: BP 111/72
[2019-08-25] MEDS: magnesium hydroxide 30ml (MOM) UD suspension PO PRN (16:54)
--- NOTE | 2019-08-25 16:57 | NUR ---
BLADDER SCAN = [id number]
--- NOTE | 2019-08-25 18:06 | NUR ---
REPORT GIVEN TO JAILENE GRIFFIN. SHE IS AWARE OF PT.'S OUTPUT AND AGREES TO MONITOR/CHECK VOID.
--- NOTE | 2019-08-25 18:34 | NUR ---
Patient in room [facility] 358. I have received report from Renae Farah and had the opportunity to ask questions and assume patient care. Addendum: 08/25/19 at 1835 by Maura Holder RN Amended: Links added.
[2019-08-25 19:40] VITALS: BP 131/77
[2019-08-25] MEDS: HYDROcodone/acetaminophen 10/325mg tab PO PRN (20:19)
[2019-08-25] MEDS: atorvastatin 20mg tablet PO SCH (20:22)
[2019-08-25] MEDS: clonazePAM 1mg tablet PO PRN (20:22)
--- NOTE | 2019-08-25 20:27 | NUR ---
MEDICATED FOR PAIN AND SLEEP PER REQUEST.
--- NOTE | 2019-08-25 23:18 | NUR ---
resting without changes.
--- NOTE | 2019-08-26 01:00 | NUR ---
resting eyes closed without changes.
--- NOTE | 2019-08-26 03:00 | NUR ---
ressting without changes.
--- NOTE | 2019-08-26 04:00 | NUR ---
pt had 25cc out with pure wick had voided 75cc on bedpan earlier.
--- NOTE | 2019-08-26 04:20 | NUR ---
pt bladder scanned had 513cc in the bladder per scanner. call to Dr Angulo. order to insert vargas taken for retention.
--- NOTE | 2019-08-26 04:40 | NUR ---
went into pt room explained to her Dr ordered a vargas for retention pt refused it even after explaining the problem with urine sitting in her bladder. she stated i've never had one before and "i don't want it" stated this with another Rn present hearing this. stated x2 she did not want it and "I doesn't care what the Dr ordered"!
--- NOTE | 2019-08-26 05:27 | NUR ---
awake and watching tv encouraging her to drink water
--- NOTE | 2019-08-26 05:35 | NUR ---
Dr Angulo notified when rounding of pt's refusal for a vargas. told him the statements she made.
--- NOTE | 2019-08-26 06:22 | NUR ---
Problems reprioritized. Patient report given, questions answered & plan of care reviewed with Kalpana Farah. Addendum: 08/26/19 at 0622 by Maura Holder RN Amended: Links added.
--- NOTE | 2019-08-26 06:49 | NUR ---
Patient in room [facility] 358. I have received report from Maura GRIFFIN and had the opportunity to ask questions and assume patient care.
[2019-08-26 07:00] VITALS: BP 133/79
[2019-08-26] MEDS: K and/or MAG REPLACEMENT MC SCH ×2 (08:00→20:00)
--- NOTE | 2019-08-26 09:00 | NUR ---
Patient in room [facility] 358. I have received report from Adeline and had the opportunity to ask questions and assume patient care.
[2019-08-26] MEDS: docusate sod 100mg capsule PO SCH ×2 (09:20→21:22)
[2019-08-26] MEDS: apixaban 5mg tablet PO SCH ×2 (09:21→21:23)
[2019-08-26] MEDS: pantoprazole 40mg Tablet.DR PO SCH (09:21)
[2019-08-26] MEDS: diltiazem CD 120mg capsule (once-daily) PO SCH (09:21)
[2019-08-26] MEDS: metoprolol tartrate 50mg tablet PO SCH ×2 (09:21→21:24)
[2019-08-26] MEDS: NYSTATIN CREAM - 30GM TUBE TP SCH ×2 (09:22→20:00)
--- NOTE | 2019-08-26 09:28 | NUR ---
Patient insisted that she does not want a vargas catheter. Patient stated she just went pee on a bedpan, patient is currently has wick in place.
[2019-08-26 10:01] VITALS: BP 124/72
[2019-08-26 11:00] VITALS: BP 113/62
--- NOTE | 2019-08-26 12:57 | NUR ---
PT reported that patient refused physical therapy today.
--- NOTE | 2019-08-26 13:59 | NUR ---
PT at bedside talking to the patient
--- NOTE | 2019-08-26 15:49 | NUR ---
Patient refused wound care today on her abdomen. I explained to her that it needs to be changed everyday to prevent infection. Patient still refused. Patient states "there's no need, it's not that dirty!"
--- NOTE | 2019-08-26 18:20 | NUR ---
Problems reprioritized. Patient report given, questions answered & plan of care reviewed with Tarik GRIFFIN.
--- NOTE | 2019-08-26 18:32 | NUR ---
Patient in room [facility] 358. I have received report from JARED GRIFFIN and had the opportunity to ask questions and assume patient care. Addendum: 08/26/19 at 1832 by Maura Holder RN Amended: Links added.
--- NOTE | 2019-08-26 18:52 | NUR ---
Problems reprioritized. Patient report given, questions answered & plan of care reviewed with Maura GRIFFIN.
[2019-08-26 20:00] VITALS: BP 137/75
[2019-08-26] MEDS: clonazePAM 1mg tablet PO PRN (21:22)
[2019-08-26] MEDS: HYDROcodone/acetaminophen 10/325mg tab PO PRN (21:23)
[2019-08-26] MEDS: atorvastatin 20mg tablet PO SCH (21:25)
--- NOTE | 2019-08-26 21:30 | NUR ---
pt was sleeping awoke hs meds given and medicated for back pain per request then given a sandwich. pt had not eaten her dinner.
--- NOTE | 2019-08-26 23:35 | NUR ---
pt resting eyes closed without s&S of distress at this time.
[2019-08-27] VITALS: BP 97/52
--- NOTE | 2019-08-27 01:04 | NUR ---
resting eyes closed without changes.
--- NOTE | 2019-08-27 03:20 | NUR ---
pt awoke requested bedpan and noted inc of large amount of urine in the bed. encouraged pt to assist in turning etc. she barely would lift an arm to assist or roll. skin care done complete lien change and dry flows put under her. new pure wick set up down and put on the pt. nystatin to the folds. repositioned up in bed using Trendelenburg. pt did not assist when asked her to assist in pulling her up in bed. pt then positioned to comfort.
--- NOTE | 2019-08-27 05:35 | NUR ---
pure wick working, resting without s&s of distress.
--- NOTE | 2019-08-27 06:45 | NUR ---
Problems reprioritized. Patient report given, questions answered & plan of care reviewed with Kalpana Farah. Addendum: 08/27/19 at 0646 by Maura Holder RN Amended: Links added.
--- NOTE | 2019-08-27 06:53 | NUR ---
Patient in room [facility] 358. I have received report from Maura GRIFFIN and had the opportunity to ask questions and assume patient care.
[2019-08-27 07:00] VITALS: BP 108/59
[2019-08-27] MEDS: K and/or MAG REPLACEMENT MC SCH ×2 (08:00→20:00)
[2019-08-27] MEDS: docusate sod 100mg capsule PO SCH ×2 (09:07→19:15)
[2019-08-27] MEDS: apixaban 5mg tablet PO SCH ×2 (09:07→19:15)
[2019-08-27] MEDS: metoprolol tartrate 50mg tablet PO SCH ×2 (09:07→19:15)
[2019-08-27] MEDS: pantoprazole 40mg Tablet.DR PO SCH (09:07)
[2019-08-27] MEDS: NYSTATIN CREAM - 30GM TUBE TP SCH ×2 (09:08→19:20)
[2019-08-27] MEDS: diltiazem CD 120mg capsule (once-daily) PO SCH (09:08)
--- NOTE | 2019-08-27 09:30 | NUR ---
During assessment patient bedding was being changed with her clothing, when nurse noted a red bottom. Patient was cleaned, pat dried and barrier cream applied with an opti foam applied to bottom. Patient was repositioned alternating sides. About 30 mins later, Patient called nurse describing a burning sensation due to the opti foam. I educated the patient on the importance of turning, repositioning, and any interventions that we may take to prevent any skin issues or bed sores. Patient was reluctant in responding, correlating non compliance in doing so. Patient refused to keep opti foam on, so I took it off. Patient stated, "I have been in bed a long time and never get any sores". Physical assessment was completed and continual education will be implemented throughout pts stay. At next turn at 1130, I will be taking pictures, repositioning and cleaning. Re educated patient and encouraging movement. Will continue to monitor.
[2019-08-27] MEDS: HYDROcodone/acetaminophen 10/325mg tab PO PRN ×2 (10:04→19:14)
[2019-08-27 11:00] VITALS: BP 118/71
--- NOTE | 2019-08-27 16:40 | NUR ---
Jose was asked to have a new IV line in her, due to the ome she knowfs Addendum: 08/27/19 at 1642 by Melinda Crespo RN Patient was asked to have a new IV line inserted in her, due to the first line being out dated. Patient refused a new line, stating, " I dont;t need that i am going [facility]
--- NOTE | 2019-08-27 17:25 | NUR ---
Went to reposition patient. Patient refused care and documentation with picture. We were able to put pillows under under in chair with a sit to stand device. Patient stated she was unable to use device, but with lots of encouragement patient was able to stand with assist of aids/nurses. Patient still refused all care to problem area. Patient again was educated on the pros/cons of not participating in these interventions. Patient stated pain on bottom, again nurses reiterated the need to change positions, get up and move and not to rely on bed changes for elimination pattern. We will continue to monitor and educated.
--- NOTE | 2019-08-27 18:23 | NUR ---
Problems reprioritized. Patient report given, questions answered & plan of care reviewed with MELIDA RN. Patients vital signs are stable to transfer care. Patient is in chair eating dinner, Call light in reach, BLL.
--- NOTE | 2019-08-27 18:30 | NUR ---
Patient in room [facility] 358. I have received report from LORA GRIFFIN and had the opportunity to ask questions and assume patient care.
[2019-08-27] MEDS: atorvastatin 20mg tablet PO SCH (19:17)
[2019-08-27 20:00] VITALS: BP 127/72
[2019-08-27] MEDS: clonazePAM 1mg tablet PO PRN (22:26)
[2019-08-28] VITALS: BP 103/54
--- NOTE | 2019-08-28 06:30 | NUR ---
Problems reprioritized. Patient report given, questions answered & plan of care reviewed with LIANNE GRIFFIN.
[2019-08-28 07:58] VITALS: BP 130/55
[2019-08-28] MEDS: NYSTATIN CREAM - 30GM TUBE TP SCH (08:00)
[2019-08-28] MEDS: K and/or MAG REPLACEMENT MC SCH ×2 (08:00→20:00)
[2019-08-28] MEDS: diltiazem CD 120mg capsule (once-daily) PO SCH (08:24)
[2019-08-28] MEDS: HYDROcodone/acetaminophen 10/325mg tab PO PRN ×2 (08:24→20:37)
[2019-08-28] MEDS: apixaban 5mg tablet PO SCH ×2 (08:24→20:35)
[2019-08-28] MEDS: pantoprazole 40mg Tablet.DR PO SCH (08:24)
[2019-08-28] MEDS: metoprolol tartrate 50mg tablet PO SCH ×2 (08:24→20:37)
[2019-08-28] MEDS: docusate sod 100mg capsule PO SCH ×2 (08:24→20:35)
--- NOTE | 2019-08-28 11:02 | NUR ---
Reassessment: Pt continues on regular diet averaging 75-100% PO intake meeting nutrient needs. LBM 08/26 however all BMs documented as small since 08/21. Pt receiving routine and PRN bowel care. D/w dietary to send prunes and prune juice with next meal to assist with bowel regularity. Will continue to follow and monitor need for further nutrition intervention. Recommendations: 1) Continue regular diet 2) Routine bowel care 3) Scaled wts Addendum: 08/28/19 at [address] Amended: Links added.
[2019-08-28 12:00] VITALS: BP 87/53
[2019-08-28 12:15] VITALS: BP 105/57
--- NOTE | 2019-08-28 15:56 | NUR ---
700ML OF URINE COLLECTED VIA STRAIGHT CATH. LDINNING Addendum: 08/28/19 at 1557 by Tina Winters STUDENT -CHUCKIE Amended: Links added. Addendum: 08/28/19 at 1609 by Tina Winters STUDENT -CHUCKIE Disregard above, wrong patient. ldinning
[2019-08-28] MEDS ORDERED: nystatin 15 GM powder TP ONE (17:30)
--- NOTE | 2019-08-28 18:30 | NUR ---
Patient in room [facility] 358. I have received report from LIANNE GRIFFIN and had the opportunity to ask questions and assume patient care.
[2019-08-28 20:00] VITALS: BP 103/57
[2019-08-28] MEDS: clonazePAM 1mg tablet PO PRN (20:35)
[2019-08-28] MEDS: atorvastatin 20mg tablet PO SCH (20:36)
[2019-08-28] MEDS: nystatin 15 GM powder TP SCH (20:39)
[2019-08-29] VITALS: BP 101/52
--- NOTE | 2019-08-29 06:30 | NUR ---
Problems reprioritized. Patient report given, questions answered & plan of care reviewed with RORY GRIFFIN.
[2019-08-29 07:00] VITALS: BP 98/62
--- NOTE | 2019-08-29 07:06 | NUR ---
Patient in room [facility] 347. I have received report from Reid and had the opportunity to ask questions and assume patient care.
[2019-08-29] MEDS: K and/or MAG REPLACEMENT MC SCH ×2 (08:00→20:00)
[2019-08-29] MEDS: metoprolol tartrate 50mg tablet PO SCH ×2 (08:00→20:17)
[2019-08-29] MEDS ORDERED: nystatin 15 GM powder TP SCH (08:00)
[2019-08-29] MEDS: diltiazem CD 120mg capsule (once-daily) PO SCH (08:00)
[2019-08-29] MEDS: pantoprazole 40mg Tablet.DR PO SCH (08:37)
[2019-08-29] MEDS: apixaban 5mg tablet PO SCH ×2 (08:37→20:16)
[2019-08-29] MEDS: docusate sod 100mg capsule PO SCH ×2 (08:38→20:16)
[2019-08-29] MEDS: HYDROcodone/acetaminophen 10/325mg tab PO PRN ×2 (08:42→22:32)
[2019-08-29] MEDS: nystatin 15 GM powder TP SCH ×2 (08:44→20:17)
[2019-08-29 11:41] VITALS: BP 120/73
--- NOTE | 2019-08-29 18:17 | NUR ---
Problems reprioritized. Patient report given, questions answered & plan of care reviewed with Mayela Gillis
--- NOTE | 2019-08-29 18:33 | NUR ---
Patient in room [facility] 357. I have received report from ELIAS Ching and had the opportunity to ask questions and assume patient care. Addendum: 08/29/19 at 1833 by Grisel Lozada RN Amended: Links added.
[2019-08-29] MEDS: atorvastatin 20mg tablet PO SCH (20:16)
[2019-08-29] MEDS: clonazePAM 1mg tablet PO PRN (22:31)
[2019-08-29 23:34] VITALS: BP 114/57
[2019-08-30] VITALS: BP 110/52
--- NOTE | 2019-08-30 06:20 | NUR ---
Problems reprioritized. Patient report given, questions answered & plan of care reviewed with RN. Stacie.
--- NOTE | 2019-08-30 06:30 | NUR ---
Patient in room [facility] 357. I have received report from Mayela Solis RN and had the opportunity to ask questions and assume patient care.
[2019-08-30 08:00] VITALS: BP 110/68
[2019-08-30] MEDS: docusate sod 100mg capsule PO SCH ×2 (08:34→19:36)
[2019-08-30] MEDS: metoprolol tartrate 50mg tablet PO SCH ×2 (08:34→19:37)
[2019-08-30] MEDS: diltiazem CD 120mg capsule (once-daily) PO SCH (08:35)
[2019-08-30] MEDS: pantoprazole 40mg Tablet.DR PO SCH (08:35)
[2019-08-30] MEDS: apixaban 5mg tablet PO SCH ×2 (08:35→19:36)
[2019-08-30] MEDS: nystatin 15 GM powder TP SCH ×2 (08:35→19:38)
[2019-08-30 11:00] VITALS: BP 124/70
[2019-08-30 18:00] VITALS: BP 129/76
--- NOTE | 2019-08-30 18:36 | NUR ---
Problems reprioritized. Patient report given, questions answered & plan of care reviewed with ELIAS Sanchez.
[2019-08-30] MEDS: K and/or MAG REPLACEMENT MC SCH (19:36)
[2019-08-30] MEDS: atorvastatin 20mg tablet PO SCH (19:41)
[2019-08-30] MEDS: HYDROcodone/acetaminophen 10/325mg tab PO PRN (20:33)
[2019-08-31] VITALS: BP 117/73
--- NOTE | 2019-08-31 06:29 | NUR ---
Patient in room [facility] 360. I have received report from ELIAS Sanchez and had the opportunity to ask questions and assume patient care.
[2019-08-31 06:31] LABS: ALANINE AMINOTRANSFERASE 27 U/L (12-78); ALBUMIN 2.6 G/DL (3.4-5.0); ALBUMIN/GLOBULIN RATIO 0.6 (1.1-1.5); ALKALINE PHOSPHATASE 96 IU/L (46-116); ANION GAP 9 (8-16); ASPARTATE AMINO TRANSFERASE 17 U/L (10-37); BILIRUBIN,TOTAL 0.3 MG/DL (0.1-1.0); BLOOD UREA NITROGEN 16 MG/DL (7-18); BUN/CREATININE RATIO 22.2 (6.6-38.0); CALCIUM 9.1 MG/DL (8.5-10.1); CHLORIDE 106 MMOL/L (99-107); CREATININE 0.72 MG/DL (0.40-0.90); GLUCOSE 115 MG/DL (70-104); POTASSIUM 4.3 MMOL/L (3.5-5.1); SODIUM 143 MMOL/L (135-145); TOTAL CARBON DIOXIDE 27.7 MMOL/L (24-32); TOTAL PROTEIN 6.7 G/DL (6.4-8.2); eGFR 78 ML/MIN
--- NOTE | 2019-08-31 06:33 | NUR ---
Reported off to Stacie GRIFFIN. Patient is awake and alert on room air. In no apparent distress. Call light and items of frequent use within reach.
[2019-08-31 06:47] LABS: BASOPHILS # (AUTO) 0.1 X10'3 (0-0.2); BASOPHILS % (AUTO) 0.6 % (0-1); EOSINOPHILS # (AUTO) 0.6 X10'3 (0-0.9); EOSINOPHILS % (AUTO) 7.2 % (0-6); HEMATOCRIT 39.1 % (35.0-45.0); HEMOGLOBIN 12.5 g/dl (12.0-16.0); LYMPHOCYTES # (AUTO) 2.1 X10'3 (1.1-4.8); LYMPHOCYTES % (AUTO) 26.3 % (21-51); MEAN CORPUSCULAR HEMOGLOBIN 27.5 PG (27.0-31.0); MEAN CORPUSCULAR VOLUME 86.1 FL (78-98); MEAN PLATELET VOLUME 9.2 FL (7.4-10.4); MONOCYTES # (AUTO) 0.7 X10'3 (0-0.9); MONOCYTES % (AUTO) 8.5 % (2-12); NEUTROPHILS # (AUTO) 4.5 X10'3 (1.8-7.7); NEUTROPHILS % (AUTO) 57.4 % (42-75); PLATELET COUNT 240 X10'3 (140-440); RED BLOOD COUNT 4.54 X10'6 (4.20-5.60); RED CELL DISTRIBUTION WIDTH 15.9 % (11.5-14.5); WHITE BLOOD COUNT 7.9 X10'3 (4.5-11.0)
[2019-08-31 07:00] VITALS: BP 126/66
[2019-08-31] MEDS: K and/or MAG REPLACEMENT MC SCH ×2 (08:00→20:00)
[2019-08-31] MEDS: diltiazem CD 120mg capsule (once-daily) PO SCH (08:40)
[2019-08-31] MEDS: apixaban 5mg tablet PO SCH ×2 (08:40→20:29)
[2019-08-31] MEDS: docusate sod 100mg capsule PO SCH ×2 (08:40→20:28)
[2019-08-31] MEDS: pantoprazole 40mg Tablet.DR PO SCH (08:40)
[2019-08-31] MEDS: metoprolol tartrate 50mg tablet PO SCH ×2 (08:41→20:29)
[2019-08-31] MEDS: nystatin 15 GM powder TP SCH ×2 (08:41→20:31)
[2019-08-31 11:30] VITALS: BP 104/68
[2019-08-31 18:00] VITALS: BP 114/76
--- NOTE | 2019-08-31 18:34 | NUR ---
Problems reprioritized. Patient report given, questions answered & plan of care reviewed with ELIAS Sanchez.
[2019-08-31] MEDS: clonazePAM 1mg tablet PO PRN (20:28)
[2019-08-31] MEDS: atorvastatin 20mg tablet PO SCH (20:28)
[2019-08-31] MEDS: HYDROcodone/acetaminophen 10/325mg tab PO PRN (20:28)
[2019-09-01] VITALS: BP 115/64
--- NOTE | 2019-09-01 06:38 | NUR ---
Reported off to Faith GRIFFIN. Patient is resting with relaxed and unlabored respirations on room air. In no apparent distress. Call light and items of frequent use within reach.
--- NOTE | 2019-09-01 06:45 | NUR ---
I have received report from Laura GRIFFIN and had the opportunity to ask questions and assume patient care.
[2019-09-01 07:31] VITALS: BP 138/73
[2019-09-01] MEDS: K and/or MAG REPLACEMENT MC SCH ×2 (08:37→19:28)
[2019-09-01] MEDS: apixaban 5mg tablet PO SCH ×2 (08:43→19:38)
[2019-09-01] MEDS: docusate sod 100mg capsule PO SCH ×2 (08:43→19:38)
[2019-09-01] MEDS: pantoprazole 40mg Tablet.DR PO SCH (08:43)
[2019-09-01] MEDS: diltiazem CD 120mg capsule (once-daily) PO SCH (08:43)
[2019-09-01] MEDS: metoprolol tartrate 50mg tablet PO SCH ×2 (08:48→19:38)
[2019-09-01] MEDS: nystatin 15 GM powder TP SCH ×2 (08:48→20:00)
--- NOTE | 2019-09-01 09:33 | NUR ---
Patient in room [facility] 355. I have received report from Matt GRIFFIN.
[2019-09-01 11:35] VITALS: BP 133/70
--- NOTE | 2019-09-01 15:36 | NUR ---
Patient out of bed to BSC, upon checking on patient to see if she was finished she didn't end up voiding or having BM.
--- NOTE | 2019-09-01 18:10 | NUR ---
Patient in room [facility] 355. I have received report from Amelia GRIFFIN and had the opportunity to ask questions and assume patient care.
--- NOTE | 2019-09-01 18:14 | NUR ---
Rounding on patient hourly, when asked if she has any pain patient states she doesn't. Patient worked with PT with resistance.
--- NOTE | 2019-09-01 18:15 | NUR ---
Patient in room [facility] 355. I have received report from Faith GRIFFIN and had the opportunity to ask questions and assume patient care.
[2019-09-01 19:30] VITALS: BP 128/71
[2019-09-01] MEDS: clonazePAM 1mg tablet PO PRN (19:39)
[2019-09-01] MEDS: HYDROcodone/acetaminophen 10/325mg tab PO PRN (19:39)
[2019-09-01] MEDS: atorvastatin 20mg tablet PO SCH (21:08)
[2019-09-02 00:01] VITALS: BP 114/59
[2019-09-02 05:45] LABS: BASOPHILS # (AUTO) 0.1 X10'3 (0-0.2); EOSINOPHILS # (AUTO) 0.6 X10'3 (0-0.9); EOSINOPHILS % (AUTO) 6.7 % (0-6); HEMATOCRIT 38.9 % (35.0-45.0); HEMOGLOBIN 12.4 g/dl (12.0-16.0); LYMPHOCYTES # (AUTO) 2.5 X10'3 (1.1-4.8); LYMPHOCYTES % (AUTO) 27.8 % (21-51); MEAN CORPUSCULAR HEMOGLOBIN 27.5 PG (27.0-31.0); MEAN CORPUSCULAR HGB CONC 31.8 g/dL (33.0-36.5); MEAN CORPUSCULAR VOLUME 86.6 FL (78-98); MEAN PLATELET VOLUME 9.2 FL (7.4-10.4); MONOCYTES # (AUTO) 0.8 X10'3 (0-0.9); MONOCYTES % (AUTO) 8.9 % (2-12); NEUTROPHILS # (AUTO) 4.9 X10'3 (1.8-7.7); NEUTROPHILS % (AUTO) 55.6 % (42-75); PLATELET COUNT 268 X10'3 (140-440); RED BLOOD COUNT 4.49 X10'6 (4.20-5.60); RED CELL DISTRIBUTION WIDTH 15.7 % (11.5-14.5); WHITE BLOOD COUNT 8.9 X10'3 (4.5-11.0)
[2019-09-02 05:51] LABS: ALANINE AMINOTRANSFERASE 24 U/L (12-78); ALBUMIN 2.5 G/DL (3.4-5.0); ALBUMIN/GLOBULIN RATIO 0.6 (1.1-1.5); ALKALINE PHOSPHATASE 98 IU/L (46-116); ANION GAP 6 (8-16); ASPARTATE AMINO TRANSFERASE 19 U/L (10-37); BILIRUBIN,TOTAL 0.3 MG/DL (0.1-1.0); BLOOD UREA NITROGEN 15 MG/DL (7-18); BUN/CREATININE RATIO 18.1 (6.6-38.0); CALCIUM 9.2 MG/DL (8.5-10.1); CHLORIDE 107 MMOL/L (99-107); CREATININE 0.83 MG/DL (0.40-0.90); GLUCOSE 91 MG/DL (70-104); POTASSIUM 3.9 MMOL/L (3.5-5.1); SODIUM 141 MMOL/L (135-145); TOTAL CARBON DIOXIDE 28.2 MMOL/L (24-32); TOTAL PROTEIN 6.5 G/DL (6.4-8.2); eGFR 66 ML/MIN
--- NOTE | 2019-09-02 06:30 | NUR ---
Patient in room [facility] 355. I have received report from ELIAS Cisneros and had the opportunity to ask questions and assume patient care.
--- NOTE | 2019-09-02 06:33 | NUR ---
Problems reprioritized. Patient report given, questions answered & plan of care reviewed with Faith GRIFFIN.
[2019-09-02 06:59] VITALS: BP 136/82
[2019-09-02] MEDS: apixaban 5mg tablet PO SCH ×2 (07:34→20:33)
[2019-09-02] MEDS: docusate sod 100mg capsule PO SCH ×2 (07:34→20:32)
[2019-09-02] MEDS: diltiazem CD 120mg capsule (once-daily) PO SCH (07:34)
[2019-09-02] MEDS: metoprolol tartrate 50mg tablet PO SCH ×2 (07:36→20:33)
[2019-09-02] MEDS: pantoprazole 40mg Tablet.DR PO SCH (07:36)
[2019-09-02] MEDS: nystatin 15 GM powder TP SCH ×2 (07:39→20:32)
[2019-09-02] MEDS: K and/or MAG REPLACEMENT MC SCH ×2 (08:00→20:00)
[2019-09-02] MEDS: HYDROcodone/acetaminophen 10/325mg tab PO PRN ×2 (10:21→20:34)
[2019-09-02 10:51] VITALS: BP 120/62
--- NOTE | 2019-09-02 11:26 | NUR ---
Vishal in place. Urine clear and yellow. Addendum: 09/02/19 at 1130 by Tata STONE Amended: Links added.
--- NOTE | 2019-09-02 14:31 | NUR ---
Patient is Requesting to walk with PT.
--- NOTE | 2019-09-02 18:12 | NUR ---
Patient in room [facility] 355. I have received report from Faith GRIFFIN and had the opportunity to ask questions and assume patient care.
--- NOTE | 2019-09-02 18:20 | NUR ---
Problems reprioritized. Patient report given, questions answered & plan of care reviewed with Amelia GRIFFIN.
[2019-09-02 20:00] VITALS: BP 137/79
[2019-09-02] MEDS: atorvastatin 20mg tablet PO SCH (20:32)
[2019-09-02] MEDS: clonazePAM 1mg tablet PO PRN (20:32)
[2019-09-03] VITALS: BP 124/63
--- NOTE | 2019-09-03 06:30 | NUR ---
Problems reprioritized. Patient report given, questions answered & plan of care reviewed with Aby GRIFFIN.
[2019-09-03] MEDS: K and/or MAG REPLACEMENT MC SCH ×2 (08:00→19:58)
[2019-09-03] MEDS: diltiazem CD 120mg capsule (once-daily) PO SCH (08:54)
[2019-09-03 08:55] VITALS: BP 103/50
[2019-09-03] MEDS: apixaban 5mg tablet PO SCH ×2 (08:55→20:07)
[2019-09-03] MEDS: pantoprazole 40mg Tablet.DR PO SCH (08:55)
[2019-09-03] MEDS: nystatin 15 GM powder TP SCH ×2 (08:55→20:09)
[2019-09-03 11:00] VITALS: BP 102/61
--- NOTE | 2019-09-03 12:39 | NUR ---
Reassessment: No significant changes in PO intake since last RD assessment. Pt continues with average 75-100% PO intake of meals. LBM 6/9 documented as moderate with a large BM 6/7. Pt continues with routine bowel care. No nutrition intervention implemented at this time. Will continue to follow. Recommendations: 1) Continue regular diet 2) Routine bowel care 3) Scaled wts Addendum: 09/03/19 at [address] Amended: Links added.
[2019-09-03] MEDS: metoprolol tartrate 50mg tablet PO SCH ×2 (12:41→20:07)
[2019-09-03] MEDS: HYDROcodone/acetaminophen 10/325mg tab PO PRN ×2 (12:42→20:08)
[2019-09-03] MEDS: docusate sod 100mg capsule PO SCH ×2 (12:42→20:07)
--- NOTE | 2019-09-03 18:25 | NUR ---
Patient in room [facility] 355. I have received report from Aby GRIFFIN and had the opportunity to ask questions and assume patient care.
[2019-09-03 19:00] VITALS: BP 113/72
[2019-09-03] MEDS: clonazePAM 1mg tablet PO PRN (20:07)
[2019-09-03] MEDS: atorvastatin 20mg tablet PO SCH (20:08)
[2019-09-04] VITALS: BP 100/57
[2019-09-04] MEDS: HYDROcodone/acetaminophen 10/325mg tab PO PRN ×2 (01:39→12:01)
[2019-09-04 05:43] LABS: BASOPHILS # (AUTO) 0.1 X10'3 (0-0.2); EOSINOPHILS # (AUTO) 0.5 X10'3 (0-0.9); EOSINOPHILS % (AUTO) 6.3 % (0-6); HEMATOCRIT 35.6 % (35.0-45.0); HEMOGLOBIN 11.1 g/dl (12.0-16.0); LYMPHOCYTES # (AUTO) 2.2 X10'3 (1.1-4.8); LYMPHOCYTES % (AUTO) 26.8 % (21-51); MEAN CORPUSCULAR HEMOGLOBIN 27.1 PG (27.0-31.0); MEAN CORPUSCULAR HGB CONC 31.3 g/dL (33.0-36.5); MEAN CORPUSCULAR VOLUME 86.6 FL (78-98); MEAN PLATELET VOLUME 9.7 FL (7.4-10.4); MONOCYTES # (AUTO) 0.8 X10'3 (0-0.9); MONOCYTES % (AUTO) 9.2 % (2-12); NEUTROPHILS # (AUTO) 4.7 X10'3 (1.8-7.7); NEUTROPHILS % (AUTO) 56.7 % (42-75); PLATELET COUNT 257 X10'3 (140-440); RED BLOOD COUNT 4.11 X10'6 (4.20-5.60); RED CELL DISTRIBUTION WIDTH 15.9 % (11.5-14.5); WHITE BLOOD COUNT 8.2 X10'3 (4.5-11.0)
[2019-09-04 06:03] LABS: ALANINE AMINOTRANSFERASE 19 U/L (12-78); ALBUMIN 2.4 G/DL (3.4-5.0); ALBUMIN/GLOBULIN RATIO 0.6 (1.1-1.5); ALKALINE PHOSPHATASE 93 IU/L (46-116); ANION GAP 8 (8-16); ASPARTATE AMINO TRANSFERASE 20 U/L (10-37); BILIRUBIN,TOTAL 0.3 MG/DL (0.1-1.0); BLOOD UREA NITROGEN 18 MG/DL (7-18); BUN/CREATININE RATIO 24.3 (6.6-38.0); CALCIUM 8.9 MG/DL (8.5-10.1); CHLORIDE 108 MMOL/L (99-107); CREATININE 0.74 MG/DL (0.40-0.90); GLUCOSE 94 MG/DL (70-104); POTASSIUM 4.3 MMOL/L (3.5-5.1); SODIUM 143 MMOL/L (135-145); TOTAL CARBON DIOXIDE 27.4 MMOL/L (24-32); TOTAL PROTEIN 6.2 G/DL (6.4-8.2); eGFR 75 ML/MIN
--- NOTE | 2019-09-04 06:40 | NUR ---
Patient in room [facility] 355. I have received report from Amelia GRIFFIN and had the opportunity to ask questions and assume patient care.
--- NOTE | 2019-09-04 06:48 | NUR ---
Problems reprioritized. Patient report given, questions answered & plan of care reviewed with Tarik GRIFFIN.
--- NOTE | 2019-09-04 06:59 | NUR ---
Patient in room [facility] 355. I have received report from Vascular Tech RN and had the opportunity to ask questions and assume patient care.
[2019-09-04] MEDS: pantoprazole 40mg Tablet.DR PO SCH (07:27)
[2019-09-04] MEDS: docusate sod 100mg capsule PO SCH ×2 (07:27→20:31)
[2019-09-04] MEDS: apixaban 5mg tablet PO SCH ×2 (07:27→20:31)
[2019-09-04] MEDS: nystatin 15 GM powder TP SCH ×2 (07:28→20:32)
[2019-09-04] MEDS: K and/or MAG REPLACEMENT MC SCH ×2 (08:00→20:00)
[2019-09-04 08:33] VITALS: BP 104/51
[2019-09-04] MEDS: diltiazem CD 120mg capsule (once-daily) PO SCH (09:19)
[2019-09-04] MEDS: metoprolol tartrate 50mg tablet PO SCH ×2 (09:20→20:32)
[2019-09-04 11:00] VITALS: BP 111/45
--- NOTE | 2019-09-04 17:39 | NUR ---
Problems reprioritized. Patient report given, questions answered & plan of care reviewed with Tarik GRIFFIN.
--- NOTE | 2019-09-04 18:47 | NUR ---
Patient in room [facility] 355. I have received report from ELIAS Acuna and had the opportunity to ask questions and assume patient care. Addendum: 09/04/19 at 1848 by Grisel Lozada RN Amended: Links added.
[2019-09-04 20:00] VITALS: BP 122/62
[2019-09-04] MEDS: clonazePAM 1mg tablet PO PRN (20:31)
[2019-09-04] MEDS: atorvastatin 20mg tablet PO SCH (20:31)
[2019-09-05] VITALS: BP 101/56
--- NOTE | 2019-09-05 06:09 | NUR ---
Problems reprioritized. Patient report given, questions answered & plan of care reviewed with ELIAS Romero.
--- NOTE | 2019-09-05 06:30 | NUR ---
Patient in room [facility] 355. I have received report from Mayela Appiah RN and had the opportunity to ask questions and assume patient care.
[2019-09-05 07:00] VITALS: BP 137/60
[2019-09-05] MEDS: K and/or MAG REPLACEMENT MC SCH ×2 (08:00→20:00)
[2019-09-05] MEDS: diltiazem CD 120mg capsule (once-daily) PO SCH (08:32)
[2019-09-05] MEDS: metoprolol tartrate 50mg tablet PO SCH ×2 (08:32→19:51)
[2019-09-05] MEDS: docusate sod 100mg capsule PO SCH ×2 (08:32→19:51)
[2019-09-05] MEDS: apixaban 5mg tablet PO SCH ×2 (08:32→19:51)
[2019-09-05] MEDS: pantoprazole 40mg Tablet.DR PO SCH (08:32)
[2019-09-05] MEDS: nystatin 15 GM powder TP SCH ×2 (08:33→19:51)
[2019-09-05 11:00] VITALS: BP 117/57
--- NOTE | 2019-09-05 11:54 | NUR ---
Patient has a elia-wick for incontinence. Will replace per protocol Addendum: 09/05/19 at 1203 by Jenny Arnett STUDENT BERTHA Amended: Links added.
--- NOTE | 2019-09-05 16:20 | NUR ---
Patient complaining that she has not seen by Physical Therapist. Paged Physical Therapist. Asiya from PT called, she said they wont be able to see her today because they are not done with seeing other patients yet. I relayed this message to the patient and patient got upset about PT not seeing her today. I told patient that PT said they will put her on the list of needing to be seen tomorrow morning. Patient stated "I want to get out of here, I want to walk! I want to go home!" I asked her if she wants to go AMA, she did not answered. I told patient that she obviously upset right now and that I will let her think about her decision. I also had asked patient if how she will be able to walk at home and if she can do self care at home. She did not responded.
--- NOTE | 2019-09-05 17:11 | NUR ---
Patient agreed to transfer her from bed to a chair. Patient transferred from bed to chair with 2 person assist using sit to stand and gait gait belt. Patient had difficulty standing too long on her feet during transfer. Call light within reach. Linens changed
--- NOTE | 2019-09-05 18:05 | NUR ---
Patient in room [facility] 355. I have received report from ELIAS Romero and had the opportunity to ask questions and assume patient care. Addendum: 09/05/19 at 1825 by Grisel Lozada RN Amended: Links added.
--- NOTE | 2019-09-05 18:26 | NUR ---
Problems reprioritized. Patient report given, questions answered & plan of care reviewed with Mayela Appiah RN.
[2019-09-05 19:00] VITALS: BP 123/71
[2019-09-05] MEDS: atorvastatin 20mg tablet PO SCH (19:51)
[2019-09-05] MEDS: clonazePAM 1mg tablet PO PRN (22:25)
[2019-09-06] VITALS: BP 122/66
--- NOTE | 2019-09-06 06:14 | NUR ---
Problems reprioritized. Patient report given, questions answered & plan of care reviewed with ELIAS Quinones.
--- NOTE | 2019-09-06 06:26 | NUR ---
Patient in room [facility] 355. I have received report from Mayela Solis RN and had the opportunity to ask questions and assume patient care.
[2019-09-06 07:00] VITALS: BP 135/60
[2019-09-06] MEDS: diltiazem CD 120mg capsule (once-daily) PO SCH (07:36)
[2019-09-06] MEDS: metoprolol tartrate 50mg tablet PO SCH ×2 (07:36→20:27)
[2019-09-06] MEDS: apixaban 5mg tablet PO SCH ×2 (07:36→20:27)
[2019-09-06] MEDS: docusate sod 100mg capsule PO SCH ×2 (07:36→20:27)
[2019-09-06] MEDS: nystatin 15 GM powder TP SCH ×2 (07:37→20:27)
[2019-09-06] MEDS: pantoprazole 40mg Tablet.DR PO SCH (07:37)
[2019-09-06] MEDS: magnesium hydroxide 30ml (MOM) UD suspension PO PRN (07:47)
[2019-09-06 11:00] VITALS: BP 123/76
[2019-09-06] MEDS: HYDROcodone/acetaminophen 10/325mg tab PO PRN (13:58)
[2019-09-06 18:00] VITALS: BP 129/68
--- NOTE | 2019-09-06 18:20 | NUR ---
Problems reprioritized. Patient report given, questions answered & plan of care reviewed with Mayela Solis RN.
--- NOTE | 2019-09-06 18:26 | NUR ---
Patient in room [facility] 355. I have received report from ELIAS SOTELO and had the opportunity to ask questions and assume patient care. Addendum: 09/06/19 at 1826 by Grisel Lozada RN Amended: Links added.
[2019-09-06] MEDS: atorvastatin 20mg tablet PO SCH (20:27)
[2019-09-06] MEDS: clonazePAM 1mg tablet PO PRN (21:28)
[2019-09-07] VITALS: BP 113/64
--- NOTE | 2019-09-07 06:27 | NUR ---
Problems reprioritized. Patient report given, questions answered & plan of care reviewed with ELIAS Ching.
--- NOTE | 2019-09-07 06:37 | NUR ---
Patient in room [facility] 355. I have received report from Grisel and had the opportunity to ask questions and assume patient care.
--- NOTE | 2019-09-07 07:00 | NUR ---
Received report from noc broker in chargePretty, that pt was OOB w/ FWW & gait belt w/ nursing on noc shift x2, and tolerated well.
[2019-09-07 07:23] VITALS: BP 128/70
[2019-09-07] MEDS: apixaban 5mg tablet PO SCH ×2 (07:34→20:47)
[2019-09-07] MEDS: metoprolol tartrate 50mg tablet PO SCH ×2 (07:34→20:48)
[2019-09-07] MEDS: diltiazem CD 120mg capsule (once-daily) PO SCH (07:34)
[2019-09-07] MEDS: docusate sod 100mg capsule PO SCH ×2 (07:34→20:47)
[2019-09-07] MEDS: pantoprazole 40mg Tablet.DR PO SCH (07:35)
[2019-09-07] MEDS: nystatin 15 GM powder TP SCH ×2 (07:35→20:48)
[2019-09-07 11:00] VITALS: BP 119/68
[2019-09-07 11:48] VITALS: BP 119/68
[2019-09-07] MEDS: HYDROcodone/acetaminophen 10/325mg tab PO PRN (12:58)
--- NOTE | 2019-09-07 15:40 | NUR ---
abdominal bandage changed CDI by student Nurse Jayla vAelar + Masoud Peters
--- NOTE | 2019-09-07 16:12 | NUR ---
Student Medication Administration: For this medication-pass time frame, all medication were reviewed, dispensed, administered and documented per hospital policy by Masoud Student Nurse.
[2019-09-07 18:00] VITALS: BP 124/66
--- NOTE | 2019-09-07 18:20 | NUR ---
Problems reprioritized. Patient report given, questions answered & plan of care reviewed with ELIAS Singh.
[2019-09-07] MEDS: clonazePAM 1mg tablet PO PRN (20:48)
[2019-09-07] MEDS: atorvastatin 20mg tablet PO SCH (20:48)
[2019-09-08] VITALS: BP 116/55
[2019-09-08] MEDS: HYDROcodone/acetaminophen 10/325mg tab PO PRN ×3 (04:16→18:06)
--- NOTE | 2019-09-08 06:46 | NUR ---
Problems reprioritized. Patient report given, questions answered & plan of care reviewed with Kristi GRIFFIN.
[2019-09-08 07:00] VITALS: BP 105/63
--- NOTE | 2019-09-08 07:41 | NUR ---
Patient in room [facility] 355 A. I have received report from ELIAS DICK and had the opportunity to ask questions and assume patient care.
[2019-09-08] MEDS: diltiazem CD 120mg capsule (once-daily) PO SCH (10:54)
[2019-09-08] MEDS: metoprolol tartrate 50mg tablet PO SCH ×2 (10:54→20:59)
[2019-09-08] MEDS: pantoprazole 40mg Tablet.DR PO SCH (10:54)
[2019-09-08] MEDS: docusate sod 100mg capsule PO SCH ×2 (10:54→20:54)
[2019-09-08] MEDS: apixaban 5mg tablet PO SCH ×2 (10:55→20:54)
[2019-09-08 11:00] VITALS: BP 104/63
[2019-09-08] MEDS: nystatin 15 GM powder TP SCH ×2 (11:00→20:00)
--- NOTE | 2019-09-08 18:15 | NUR ---
Patient in room [facility]. I have received report from Kristi GRIFFIN and had the opportunity to ask questions and assume patient care.
--- NOTE | 2019-09-08 19:02 | NUR ---
Problems reprioritized. Patient report given, questions answered & plan of care reviewed with ELIAS REDMOND.
[2019-09-08 20:00] VITALS: BP 145/64
[2019-09-08] MEDS: atorvastatin 20mg tablet PO SCH (20:59)
[2019-09-09] VITALS: BP 108/59
--- NOTE | 2019-09-09 02:25 | NUR ---
right assessment wrong time. was done at 2000 Addendum: 09/09/19 at 0226 by Maureen Cardoso RN Amended: Links added.
--- NOTE | 2019-09-09 06:22 | NUR ---
Problems reprioritized. Patient report given, questions answered & plan of care reviewed with Denis GRIFFIN.
--- NOTE | 2019-09-09 06:41 | NUR ---
Patient in room [facility]. I have received report from ELIAS Reddy and had the opportunity to ask questions and assume patient care.
[2019-09-09 07:00] VITALS: BP 117/70
[2019-09-09] MEDS: metoprolol tartrate 50mg tablet PO SCH ×2 (08:00→20:00)
[2019-09-09] MEDS: docusate sod 100mg capsule PO SCH ×2 (08:00→20:03)
[2019-09-09] MEDS: apixaban 5mg tablet PO SCH ×2 (08:00→20:03)
[2019-09-09] MEDS: diltiazem CD 120mg capsule (once-daily) PO SCH (08:00)
[2019-09-09] MEDS: furosemide 20MG tablet PO SCH (08:00)
[2019-09-09] MEDS: pantoprazole 40mg Tablet.DR PO SCH (08:00)
[2019-09-09] MEDS: nystatin 15 GM powder TP SCH ×2 (08:01→20:05)
[2019-09-09] MEDS: HYDROcodone/acetaminophen 10/325mg tab PO PRN ×2 (12:22→23:57)
[2019-09-09 12:34] VITALS: BP 109/55
--- NOTE | 2019-09-09 18:31 | NUR ---
Problems reprioritized. Patient report given, questions answered & plan of care reviewed with ELIAS Boucher.
--- NOTE | 2019-09-09 18:42 | NUR ---
Patient in room [facility]. I have received report from Denis GRIFFIN and had the opportunity to ask questions and assume patient care.
[2019-09-09 18:59] VITALS: BP 100/52
[2019-09-09] MEDS: atorvastatin 20mg tablet PO SCH (20:03)
[2019-09-09] MEDS: clonazePAM 1mg tablet PO PRN (20:09)
[2019-09-10 00:06] VITALS: BP 109/68
--- NOTE | 2019-09-10 06:43 | NUR ---
Problems reprioritized. Patient report given, questions answered & plan of care reviewed with Lou GRIFFIN.
--- NOTE | 2019-09-10 06:54 | NUR ---
Patient in room [facility]. I have received report from Citlaly GRIFFIN and had the opportunity to ask questions and assume patient care.
[2019-09-10 07:00] VITALS: BP 102/55
[2019-09-10 08:00] VITALS: BP 102/55
[2019-09-10] MEDS: metoprolol tartrate 50mg tablet PO SCH ×2 (08:00→19:20)
[2019-09-10] MEDS: pantoprazole 40mg Tablet.DR PO SCH (09:43)
[2019-09-10] MEDS: furosemide 20MG tablet PO SCH (09:43)
[2019-09-10] MEDS: docusate sod 100mg capsule PO SCH ×2 (09:44→19:20)
[2019-09-10] MEDS: apixaban 5mg tablet PO SCH ×2 (09:45→19:20)
[2019-09-10] MEDS: diltiazem CD 120mg capsule (once-daily) PO SCH (09:55)
[2019-09-10] MEDS: nystatin 15 GM powder TP SCH ×2 (09:56→19:20)
--- NOTE | 2019-09-10 10:32 | NUR ---
Reassessment: Pt continues meeting nutrient needs with average 75-100% PO intake of meals. [facility] 09/08. No nutrition intervention warranted at this time. Will continue to follow. Recommendations: 1) Continue regular diet 2) Routine bowel care 3) Scaled wts Addendum: 09/10/19 at [address] Amended: Links added.
[2019-09-10 11:00] VITALS: BP 113/75
--- NOTE | 2019-09-10 18:34 | NUR ---
Problems reprioritized. Patient report given, questions answered & plan of care reviewed with Mayela Ricci RN.
[2019-09-10] MEDS: HYDROcodone/acetaminophen 10/325mg tab PO PRN (19:20)
[2019-09-10 20:00] VITALS: BP 106/76
[2019-09-10] MEDS: atorvastatin 20mg tablet PO SCH (21:17)
[2019-09-10] MEDS: clonazePAM 1mg tablet PO PRN (21:17)
[2019-09-11] VITALS: BP 107/61
[2019-09-11] MEDS: HYDROcodone/acetaminophen 10/325mg tab PO PRN ×2 (01:19→10:33)
--- NOTE | 2019-09-11 06:37 | NUR ---
Problems reprioritized. Patient report given, questions answered & plan of care reviewed with ELIAS Gumzan.
--- NOTE | 2019-09-11 06:50 | NUR ---
Patient in room [facility]. I have received report from Flores Pedro RN and had the opportunity to ask questions and assume patient care.
[2019-09-11 08:00] VITALS: BP 113/60
[2019-09-11] MEDS: diltiazem CD 120mg capsule (once-daily) PO SCH (08:01)
[2019-09-11] MEDS: furosemide 20MG tablet PO SCH (08:01)
[2019-09-11] MEDS: docusate sod 100mg capsule PO SCH ×2 (08:01→21:33)
[2019-09-11] MEDS: pantoprazole 40mg Tablet.DR PO SCH (08:02)
[2019-09-11] MEDS: metoprolol tartrate 50mg tablet PO SCH ×2 (08:02→21:35)
[2019-09-11] MEDS: apixaban 5mg tablet PO SCH ×2 (08:02→21:34)
[2019-09-11] MEDS: nystatin 15 GM powder TP SCH ×2 (08:03→21:38)
[2019-09-11 12:00] VITALS: BP 108/48
--- NOTE | 2019-09-11 18:47 | NUR ---
Problems reprioritized. Patient report given, questions answered & plan of care reviewed with ELIAS Corral.
--- NOTE | 2019-09-11 18:55 | NUR ---
Patient in room [facility] 349. I have received report from Mechelle GRIFFIN and had the opportunity to ask questions and assume patient care.
[2019-09-11 20:00] VITALS: BP 106/62
[2019-09-11] MEDS: atorvastatin 20mg tablet PO SCH (21:35)
[2019-09-11] MEDS: clonazePAM 1mg tablet PO PRN (22:09)
[2019-09-11 22:30] VITALS: BP 118/61
--- NOTE | 2019-09-11 22:30 | NUR ---
Pt complained of chest pain. Vitals were taken and stable. Pt was reposition and stated that her pain was much better after being repositioned
[2019-09-12] VITALS: BP 107/53
[2019-09-12 04:22] VITALS: BP 121/70
--- NOTE | 2019-09-12 06:35 | NUR ---
Problems reprioritized. Patient report given, questions answered & plan of care reviewed with Mechelle GRIFFIN.
--- NOTE | 2019-09-12 06:43 | NUR ---
Patient in room [facility]. I have received report from ELIAS Corral and had the opportunity to ask questions and assume patient care.
[2019-09-12 08:00] VITALS: BP 126/70
[2019-09-12] MEDS: diltiazem CD 120mg capsule (once-daily) PO SCH (08:07)
[2019-09-12] MEDS: docusate sod 100mg capsule PO SCH ×2 (08:08→20:00)
[2019-09-12] MEDS: furosemide 20MG tablet PO SCH (08:09)
[2019-09-12] MEDS: apixaban 5mg tablet PO SCH ×2 (08:09→20:44)
[2019-09-12] MEDS: pantoprazole 40mg Tablet.DR PO SCH (08:09)
[2019-09-12] MEDS: metoprolol tartrate 50mg tablet PO SCH ×2 (08:09→20:45)
[2019-09-12] MEDS: nystatin 15 GM powder TP SCH ×2 (08:11→20:49)
[2019-09-12 11:53] VITALS: BP 124/65
[2019-09-12 18:00] VITALS: BP 119/80
--- NOTE | 2019-09-12 19:03 | NUR ---
Problems reprioritized. Patient report given, questions answered & plan of care reviewed with ELIAS Corral. pt had no c/o pain, ambulated with PT. plan to be D/C home tomorrow.
--- NOTE | 2019-09-12 19:09 | NUR ---
Patient in room [facility]. I have received report from Mechelle GRIFFIN and had the opportunity to ask questions and assume patient care.
[2019-09-12] MEDS: clonazePAM 1mg tablet PO PRN (20:46)
[2019-09-12] MEDS: HYDROcodone/acetaminophen 10/325mg tab PO PRN (20:46)
[2019-09-12] MEDS: atorvastatin 20mg tablet PO SCH (20:46)
[2019-09-13] VITALS: BP 113/64
[2019-09-13] MEDS ORDERED: proCHLORperazine 10 MG/2 ml inj IV PRN (05:10)
--- NOTE | 2019-09-13 06:48 | NUR ---
Problems reprioritized. Patient report given, questions answered & plan of care reviewed with Mechelle GRIFFIN.
--- NOTE | 2019-09-13 06:55 | NUR ---
Patient in room [facility]. I have received report from ELIAS Corral and had the opportunity to ask questions and assume patient care.
[2019-09-13 08:00] VITALS: BP 122/62
[2019-09-13] MEDS: pantoprazole 40mg Tablet.DR PO SCH (08:08)
[2019-09-13] MEDS: docusate sod 100mg capsule PO SCH (08:08)
[2019-09-13] MEDS: apixaban 5mg tablet PO SCH (08:08)
[2019-09-13] MEDS: diltiazem CD 120mg capsule (once-daily) PO SCH (08:08)
[2019-09-13] MEDS: furosemide 20MG tablet PO SCH (08:09)
[2019-09-13 08:10] VITALS: BP_SYST 122
[2019-09-13] MEDS: metoprolol tartrate 50mg tablet PO SCH (08:10)
[2019-09-13] MEDS: nystatin 15 GM powder TP SCH (08:12)
[2019-09-13] MEDS ORDERED: ASPI-1265 PO (09:00)
[2019-09-13] MEDS ORDERED: CLON-527 PO (09:00)
[2019-09-13] MEDS ORDERED: FURO20TA4 PO (09:00)
[2019-09-13] MEDS ORDERED: ATOR20TA PO (09:00)
[2019-09-13] MEDS ORDERED: APIX5TAB3 PO (09:00)
[2019-09-13] MEDS ORDERED: METO-467 PO (09:00)
[2019-09-13] MEDS ORDERED: PANT-47 PO (09:00)
[2019-09-13] MEDS ORDERED: DILT-88 PO (09:00)
[2019-09-13] MEDS ORDERED: DOCU100C40 PO (09:00)
[2019-09-13] MEDS ORDERED: HYDR-4383 PO (09:03)
--- NOTE | 2019-09-13 13:46 | NUR ---
Pt D/C home with Home Health in stable condition. Medication and discharge instructions given to pt. Paper copy prescription handed. Pt was escorted to main lobby on wheel chair, left the hospital via private vehicle accompanied by family member.
[2019-09-16] MEDS ORDERED: METH-360 PO (17:43)
[2019-09-16] MEDS ORDERED: NAPR-56 PO (17:43)
[2019-09-16] MEDS ORDERED: CHOL100046 PO (18:19)
[2019-09-16] MEDS ORDERED: GARL1000 PO (18:19)
[2019-09-16] MEDS ORDERED: GINK60CA PO (18:24)
[2019-09-16] MEDS ORDERED: CIDE500T PO (18:24)
[2019-09-16] MEDS ORDERED: [UNRECOGNIZED DRUG - CODE] PO (18:36)
[2019-09-16] MEDS ORDERED: APIX5TAB3 PO (18:37)
[2019-09-16] MEDS ORDERED: ASPI-1265 PO (18:39)
[2019-09-16] MEDS ORDERED: PANT-47 PO ×2 (18:43→18:50)
[2019-09-16] MEDS ORDERED: CARSR60C PO ×2 (18:43→18:50)
[2019-09-16] MEDS ORDERED: FURO-150 PO ×2 (18:43→18:50)
[2019-09-16] MEDS ORDERED: METO-467 PO ×2 (18:43→18:50)
[2019-09-16] MEDS ORDERED: ATOR20TA PO (18:43)
[2019-09-16] MEDS ORDERED: DILT-35 PO (18:46)
[2019-09-16] MEDS ORDERED: ATOR10TA PO (18:53)
== END 2019-09-13 13:20 | disposition home health service (06) | DRG 948 ==
LOC: ER 19:04 → ED HOLD 08-17 00:18 → SUR 3N 08-17 01:20
PROVIDERS: ADMIT Internal Medicine; ATTEND Internal Medicine
DX: R53.1 Weakness (principal); I50.22 Chronic systolic (congestive) heart failure; Z68.45 Body mass index [BMI] 70 or greater, adult; I48.0 Paroxysmal atrial fibrillation; G89.29 Other chronic pain; K21.9 Gastro-esophageal reflux disease without esophagitis; M54.9 Dorsalgia, unspecified; E78.5 Hyperlipidemia, unspecified; F41.9 Anxiety disorder, unspecified; I11.0 Hypertensive heart disease with heart failure; R62.7 Adult failure to thrive; Z79.01 Long term (current) use of anticoagulants; Z79.82 Long term (current) use of aspirin; Z90.49 Acquired absence of other specified parts of digestive tract; Z86.718 Personal history of other venous thrombosis and embolism; Z79.899 Other long term (current) drug therapy; Z87.11 Personal history of peptic ulcer disease; Z88.0 Allergy status to penicillin; Z88.2 Allergy status to sulfonamides; Z88.5 Allergy status to narcotic agent; Z88.8 Allergy status to other drugs, medicaments and biological substances
CPT/HCPCS: 36415; 80053; 81003; 83735; 83880; 84100; 85025; 87081; 93005; 93971; 97110; 97112; 97116; 97161; 97530; 97535; 99285; G0378

== ENCOUNTER 2019-10-04 02:20 | Emergency (ER) | payer MEDICARE, MEDICAID ==
[~2019-10-04] VITALS: Ht 162.6 cm; Wt 88.6 kg
[~2019-10-04 02:20] MED LIST changes: +APIX5TAB3 PO; +ATOR10TA PO; +CHOL100046 PO; -CLON-527 PO; -ESOM40CA49 PO; +FURO-150 PO; +METO-467 PO; -METO25TA6 PO; +PANT-47 PO; +[UNRECOGNIZED DRUG - CODE] PO
[2019-10-04 02:21] VITALS: BP 140/74
[2019-10-04] MEDS ORDERED: HYDROcodone/acetaminophen 5mg/325mg tablet PO ONE (02:30)
== END 2019-10-04 03:31 | disposition home or self-care (01) ==
LOC: ER 02:20
DX: M79.605 Pain in left leg (principal); M79.604 Pain in right leg; K21.9 Gastro-esophageal reflux disease without esophagitis; G89.29 Other chronic pain; F41.9 Anxiety disorder, unspecified; Z90.49 Acquired absence of other specified parts of digestive tract; Z98.890 Other specified postprocedural states; Z88.0 Allergy status to penicillin; Z88.2 Allergy status to sulfonamides; Z88.5 Allergy status to narcotic agent; Z79.01 Long term (current) use of anticoagulants; Z79.899 Other long term (current) drug therapy
CPT/HCPCS: 99283

== ENCOUNTER 2019-10-04 04:22 | Emergency (ER) | payer MEDICARE, MEDICAID ==
[~2019-10-04] VITALS: Ht 165.1 cm; Wt 90.9 kg
[2019-10-04 04:32] VITALS: BP 120/60
== END 2019-10-04 04:58 | disposition home or self-care (01) ==
LOC: ER 04:23
DX: M79.606 Pain in leg, unspecified (principal); Z53.21 Procedure and treatment not carried out due to patient leaving prior to being seen by health care provider

== ENCOUNTER 2020-01-13 13:34 | Emergency (ER) | payer MEDICARE, MEDICAID ==
[~2020-01-13] VITALS: Ht 162.6 cm; Wt 72.7 kg
[~2020-01-13 13:34] MED LIST changes: -ATOR10TA PO; +ATOR20TA66 PO; +CEFD300C3 PO; -CHOL100046 PO; +CLON-513 PO; -FURO-150 PO; +HYDR-4069 PO; +NYSPWD TP; -PANT-47 PO; -[UNRECOGNIZED DRUG - CODE] PO
--- NOTE | 2020-01-13 17:43 | NUR ---
CALLED SISTER DAIANA SHE WILL BE HERE IN 20 MINS TO [employer] PATIENT
--- NOTE | 2020-01-13 17:45 | NUR ---
Note yamilet in EDM - 01/13/20 at 2019 by BARB PATIENT DISCUSSED WITH PROVIDER HUMPHREY REGARDING GOING HOME, PATIENT AGREED TO NEEDING TO GO HOME SINCE SHE WAS RECENTLY DISCHARGED. PATIENT STATES EMS IS CALLED WHEN HER SISTER REFUSES TO HELP HER AMBULATE. PATIENT STATES SHE CAN USE THE WALKER AT HOME, BUT THE CARPET MAKES HER STRUGGLE SOME. PATIENT STATES SHE DOES NOT WANT TO GO TO REHAB.
[2020-01-13 19:36] VITALS: BP 121/80
--- NOTE | 2020-01-13 19:41 | NUR ---
Vladimir woodard in EDM - 01/13/20 at 2019 by BARB PATIENT'S SISTER ARRIVED TO TAKE PATIENT HOME.
== END 2020-01-13 22:38 | disposition home or self-care (01) ==
LOC: ER 13:34
DX: R53.1 Weakness (principal); K21.9 Gastro-esophageal reflux disease without esophagitis; G89.29 Other chronic pain; R29.6 Repeated falls; Z87.11 Personal history of peptic ulcer disease; Z90.49 Acquired absence of other specified parts of digestive tract; Z98.890 Other specified postprocedural states; Z79.899 Other long term (current) drug therapy; Z88.0 Allergy status to penicillin; Z88.2 Allergy status to sulfonamides; Z88.5 Allergy status to narcotic agent
CPT/HCPCS: 99284

== ENCOUNTER 2020-03-10 20:53 | Emergency (ER) | payer MEDICARE, MEDICAID ==
[~2020-03-10] VITALS: Ht 162.6 cm; Wt 60.0 kg
[~2020-03-10 20:53] MED LIST changes: +ATOR20TA PO; -CEFD300C3 PO; -CLON-513 PO; +DOCU100C40 PO; +FURO-150 PO; -HYDR-4069 PO; +METO50TA16 PO; -NYSPWD TP; +[UNRECOGNIZED DRUG - CODE] PO
[2020-03-10] MEDS ORDERED: ibuprofen tablet 400 MG TABLET PO ONE (22:55)
--- NOTE | 2020-03-11 | NUR ---
Pt d/c ready. Attempted to ambulate pt out of bed with 3x assist and was unable to do so. Sister was called to see how patient would be able to go home. Sister stated that [facility] usually takes patient home via gurney. Pt will be held in ER until [facility] transport available in the morning.
[2020-03-11 06:00] VITALS: BP 107/58
--- NOTE | 2020-03-11 07:59 | NUR ---
assisted pt to bedside commode,took 3 people, pt was not able to bare any wait.
--- NOTE | 2020-03-11 08:23 | NUR ---
spoke with dr. ortez regarding pt's increased weakness and lack of care at home. recieved no orders at this time.
--- NOTE | 2020-03-11 08:54 | NUR ---
[facility] refused to take pt home due to pt needing too much assistance, will try [facility].
--- NOTE | 2020-03-11 09:11 | NUR ---
spoke with ss, they are now working on a ride home with [facility].
--- NOTE | 2020-03-11 09:30 | NUR ---
[facility] agrees to transport pt home, eta 1100.
== END 2020-03-11 11:24 | disposition home or self-care (01) ==
LOC: ER 20:53
DX: M25.571 Pain in right ankle and joints of right foot (principal); M25.572 Pain in left ankle and joints of left foot; I48.91 Unspecified atrial fibrillation; K21.9 Gastro-esophageal reflux disease without esophagitis; J40 Bronchitis, not specified as acute or chronic; G89.29 Other chronic pain; Z98.891 History of uterine scar from previous surgery; Z90.49 Acquired absence of other specified parts of digestive tract; Z88.0 Allergy status to penicillin; Z88.1 Allergy status to other antibiotic agents; Z88.2 Allergy status to sulfonamides; Z88.8 Allergy status to other drugs, medicaments and biological substances; Z79.899 Other long term (current) drug therapy
CPT/HCPCS: 73600; 99284; 99285

== ENCOUNTER 2020-03-16 16:18 | Emergency (ER) | payer MEDICAID, MEDICARE ==
[~2020-03-16] VITALS: Ht 167.6 cm; Wt 109.5 kg
[2020-03-16] MEDS ORDERED: normal saline 1000ML IV soln IVB ONE (16:40)
[2020-03-16] MEDS ORDERED: furosemide 10 MG/1 ML 10ml inj IV ONE (16:40)
[2020-03-16 17:37] LABS: BASOPHILS # (AUTO) 0.1 X10'3 (0-0.2); BASOPHILS % (AUTO) 0.5 % (0-1); EOSINOPHILS # (AUTO) 0.5 X10'3 (0-0.9); EOSINOPHILS % (AUTO) 3.8 % (0-6); HEMATOCRIT 39.1 % (35.0-45.0); HEMOGLOBIN 12.6 g/dl (12.0-16.0); LYMPHOCYTES # (AUTO) 1.1 X10'3 (1.1-4.8); LYMPHOCYTES % (AUTO) 8.8 % (21-51); MEAN CORPUSCULAR HEMOGLOBIN 28.4 PG (27.0-31.0); MEAN CORPUSCULAR HGB CONC 32.3 g/dL (33.0-36.5); MEAN CORPUSCULAR VOLUME 87.9 FL (78-98); MEAN PLATELET VOLUME 9.2 FL (7.4-10.4); MONOCYTES # (AUTO) 0.9 X10'3 (0-0.9); MONOCYTES % (AUTO) 7.3 % (2-12); NEUTROPHILS # (AUTO) 9.7 X10'3 (1.8-7.7); NEUTROPHILS % (AUTO) 79.6 % (42-75); PLATELET COUNT 193 X10'3 (140-440); RED BLOOD COUNT 4.45 X10'6 (4.20-5.60); WHITE BLOOD COUNT 12.2 X10'3 (4.5-11.0)
[2020-03-16] MEDS ORDERED: CEPH250T PO (17:50)
[2020-03-16] MEDS ORDERED: DOXY100C77 PO (17:50)
[2020-03-16 17:53] LABS: ALANINE AMINOTRANSFERASE 25 U/L (12-78); ALBUMIN 2.7 G/DL (3.4-5.0); ALBUMIN/GLOBULIN RATIO 0.6 (1.1-1.5); ALKALINE PHOSPHATASE 106 IU/L (46-116); ANION GAP 8 (8-16); ASPARTATE AMINO TRANSFERASE 18 U/L (10-37); BILIRUBIN,TOTAL 0.4 MG/DL (0.1-1.0); BLOOD UREA NITROGEN 13 MG/DL (7-18); BUN/CREATININE RATIO 15.5 (6.6-38.0); CHLORIDE 107 MMOL/L (99-107); CREATININE 0.84 MG/DL (0.40-0.90); GLUCOSE 129 MG/DL (70-104); POTASSIUM 4.4 MMOL/L (3.5-5.1); SODIUM 143 MMOL/L (135-145); TOTAL CARBON DIOXIDE 27.9 MMOL/L (24-32); TOTAL PROTEIN 6.9 G/DL (6.4-8.2); eGFR 65 ML/MIN
--- NOTE | 2020-03-16 18:48 | NUR ---
CONTACTED DAIANA (SISTER)TO INQUIRE ABOUT TRANSPORTING THE PATIENT HOME. DAIANA STATES THAT SHE "DOESN'T HAVE A CAR" AND "HAS NO IDEA HOW WE WILL BE ABLE TO GET HER HOME" PATIENT UNABLE TO STATE HOW SHE HAS BEEN TRANSPORTED IN THE PAST. [facility] CONTACTED FOR [facility] HOME. AWAITING ETA.
[2020-03-16 20:58] VITALS: BP 148/67
== END 2020-03-16 21:00 | disposition home or self-care (01) ==
LOC: ER 16:19
DX: T14.8XXA Other injury of unspecified body region, initial encounter (principal); L03.115 Cellulitis of right lower limb; R60.0 Localized edema; I51.9 Heart disease, unspecified; K21.9 Gastro-esophageal reflux disease without esophagitis; G89.29 Other chronic pain; F41.9 Anxiety disorder, unspecified; Z88.0 Allergy status to penicillin; Z88.2 Allergy status to sulfonamides; Z88.8 Allergy status to other drugs, medicaments and biological substances; Z88.1 Allergy status to other antibiotic agents; Z88.5 Allergy status to narcotic agent; X58.XXXA Exposure to other specified factors, initial encounter; Y93.89 Activity, other specified; Y92.89 Other specified places as the place of occurrence of the external cause; Y99.8 Other external cause status
CPT/HCPCS: 36415; 73630; 80053; 85025; 85651; 96374; 99284; J1940